=== PATIENT | female | born 1980 | race Caucasian/White ===

== ENCOUNTER → 2017-11-07 | Outpatient (CLI) | payer OTHER ==
--- NOTE | 2017-11-07 13:30 | US ---
EXAMINATION TYPE: US abdomen limited DATE OF EXAM: 11/07/2017 COMPARISON: NONE CLINICAL HISTORY: R94.5 Elevated liver enzymes,K76.0 FATTY LIVER. EXAM MEASUREMENTS: Liver Length: 14.9 cm Gallbladder Wall: surgically absent CBD: 0.4 cm Right Kidney: 10.2 x 4.5 x 3.9 cm Pancreas: Obscured by bowel gas Liver: wnl Gallbladder: Surgically absent Evidence for sonographic Ventura's sign: no CBD: wnl Right Kidney: wnl There is suboptimal evaluation of pancreas on images saved. Gallbladder is noted surgically absent. IMPRESSION: No worrisome intrahepatic mass or intrahepatic ductal dilatation is seen.
== END | disposition home or self-care (01) ==
LOC: RADUSWWP 13:00
PROVIDERS: ATTEND Family Medicine
DX: R79.89 Other specified abnormal findings of blood chemistry (principal); K76.0 Fatty (change of) liver, not elsewhere classified
CPT/HCPCS: 76705

== ENCOUNTER → 2018-08-29 | Outpatient (CLI) | payer OTHER ==
[2018-08-29 09:20] VITALS: BP 122/86; PULSE 76; TEMP 97.9; BMI 36.6
--- NOTE | 2018-08-29 09:52 | P.HPBAR ---
Bariatric H&P - History & Physicial H&P Date: 08/29/18 History & Physicial: Visit/CC: initial clinic visit Patient initial contact: Initial weight: Initial weight in pounds: Height: 5 ft 3.5 in Initial BMI: Last weight: Current weight: 95.345 kg Current weight in pounds: 210.20 Current BMI: 36.6 [place] body weight (based on NIH guidelines): 53.297 kg Excess body weight loss: The patient is a 38 year-old F who presents for Bariatric Assessment. HPI: She comes in with life long troubles with her weight. She is looking into the sleeve gastrectomy. She has completed medical supervised weight loss for over 3+ months. Her heaviest weight 225 pounds in the past 3 years. She has joint problems and hyperlipidemia as a result. She has family history of morbid obesity including an uncle who had a weight loss surgery. She has strong family history of heart disease, diabetes. No esophageal or stomach cancer. She has GERD. She has no gallbladder. She is on a water pill for swelling of the legs and hypertension. She has back, both knees, and hip arthritis. She has sleep apnea, untreated. SKIN: 1+ pedal edema PLAN: 1. EGD for GERD 2. Recommend sleep study 3. MBSC risks reviewed. 4. Labs for metabolic derangements. Past Medical History Past Medical History: Sleep Apnea/CPAP/BIPAP Additional Past Medical History / Comment(s): GALLBLADDER PROBLEMS History of Any Multi-Drug Resistant Organisms: None Reported Past Surgical History: Orthopedic Surgery, Tubal Ligation, Uterine Ablation Additional Past Surgical History / Comment(s): BILAT ANKLE SX R/T FX-HAD PINS IN BOTH AND THEN REMOVED. EXPLORATORY LAP EXAM Past Anesthesia/Blood Transfusion Reactions: No Reported Reaction Past Psychological History: No Psychological Hx Reported Smoking Status: Never smoker Past Alcohol Use History: Rare Past Drug Use History: None Reported - Past Family History Mother Family Medical History: No Reported History Surgical - Exam Vital Signs Temp Pulse BP 97.9 F 76 122/86 08/29/18 09:16 08/29/18 09:16 08/29/18 09:16 Bariatric Checklist Checklist: Plan: Checklist: EGD: 1. Hiatal hernia: 2. H. Pylori: HgbA1c: Vitamin D: Smoking: Never smoker Primary care physician referral: zafar ramsey Psychiatry clearance: Cardiology clearance: Sleep study: Diet journal: VTE risk score: VTE risk level: Rehab needs at discharge:
[2018-08-29 11:21] LABS: HCT 39.3 % (34.0-46.0); HGB 13.5 gm/dL (11.4-16.0); MCH 29.9 pg (25.0-35.0); MCHC 34.3 g/dL (31.0-37.0); MCV 87.2 fL (80.0-100.0); Mean Platelet Volume 7.8; Platelet Count 249 k/uL (150-450); RDW 12.3 % (11.5-15.5); WBC 6.7 k/uL (3.8-10.6)
[2018-08-29 15:56] LABS: Iron Saturation 35.99 (12.00-45.00)
[2018-08-29 15:57] LABS: Albumin 4.1 g/dL (3.80-4.90); Albumin/Globulin Ratio 2.16 (1.20-2.10); Anion Gap 5.1 mmol/L (4.00-12.00); Carbon Dioxide 26.9 mmol/L (21.6-31.8); Globulin 1.9 g/dL (2.1-3.7); LDL Cholesterol,Calculated 124.8 mg/dL (0.0-131.0); Potassium 4.5 mmol/L (3.5-5.5); Total Bilirubin 0.3 mg/dL (0.2-1.2); VLDL Calculation 73.2 mg/dL (5.00-40.00)
[2018-08-29 16:08] LABS: Folate, Serum 15.3 ng/mL; Vitamin D 25 Hydroxy 23.8 ng/mL (30.0-100.0)
== END ==
LOC: BARWHC3 08:54
PROVIDERS: ATTEND Surgery Plastic and Reconstructive Surgery
DX: Z48.815 Encounter for surgical aftercare following surgery on the digestive system (principal); E66.01 Morbid (severe) obesity due to excess calories; E88.1 Lipodystrophy, not elsewhere classified; D50.9 Iron deficiency anemia, unspecified; E44.0 Moderate protein-calorie malnutrition; E55.9 Vitamin D deficiency, unspecified; I11.9 Hypertensive heart disease without heart failure; Z68.35 Body mass index [BMI] 35.0-35.9, adult; Z98.84 Bariatric surgery status
CPT/HCPCS: 84425; 80061; 80053; 82607; 82728; 82746; 83540; 83550; 84443; 85027; 82306; 83036; 93005; 36415; G0463; 99211

== ENCOUNTER 2018-11-22 09:58 | Day surgery (SDC) | payer OTHER ==
[2018-11-20 11:37] VITALS: BMI 32.2
--- NOTE | 2018-11-22 08:47 | P.GSHP ---
History of Present Illness H&P Date: 11/22/18 CHIEF COMPLAINT: GERD HISTORY OF PRESENT ILLNESS: The patient is a 38-year-old female who presents reports gastroesophageal reflux disease. Upper endoscopy was offered for further evaluation and management. PAST MEDICAL HISTORY: Please see list. PAST SURGICAL HISTORY: Please see list. MEDICATIONS: Please see list. ALLERGIES: Please see list. SOCIAL HISTORY: No illicit drug use FAMILY HISTORY: No reports of Crohn disease or ulcerative colitis. REVIEW OF ORGAN SYSTEMS: CONSTITUTIONAL: No reports of fevers or chills. GI: Denies any blood in stools or constipation. PHYSICAL EXAM: VITAL SIGNS: Stable GENERAL: Well-developed and pleasant in no acute distress. HEENT: No scleral icterus. Extraocular movements grossly intact. Moist buccal mucosa. NECK: Supple without lymphadenopathy. CHEST: Unlabored respirations. Equal bilateral excursions. CARDIOVASCULAR: Regular rate and rhythm. Distal 2+ pulses. ABDOMEN: Soft, nondistended. MUSCULOSKELETAL: No clubbing, cyanosis, or edema. ASSESSMENT: 1. Gastroesophageal reflux disease PLAN: 1. Recommend proceeding with an upper endoscopy Past Medical History Past Medical History: Sleep Apnea/CPAP/BIPAP Additional Past Medical History / Comment(s): ON ANTIBIOTICS AND STEROIDS FOR EAR DRAINAGE History of Any Multi-Drug Resistant Organisms: None Reported Past Surgical History: Cholecystectomy, Orthopedic Surgery, Tubal Ligation, Uterine Ablation Additional Past Surgical History / Comment(s): BILAT ANKLE SX R/T FX-HAD PINS IN BOTH AND THEN REMOVED. EXPLORATORY LAP EXAM Past Anesthesia/Blood Transfusion Reactions: No Reported Reaction Smoking Status: Never smoker - Past Family History Mother Family Medical History: No Reported History Medications and Allergies Home Medications Medication Instructions Recorded Confirmed Type Amoxicillin 500 mg PO Q12HR 11/20/18 11/20/18 History methylPREDNISolone Dose Pack 4 mg PO DIRECTED 11/20/18 11/20/18 History [Medrol Dose Pack] Allergies Allergy/AdvReac Type Severity Reaction Status Date / Time cortisone Allergy Rash/Hives Verified 11/20/18 11:33
[~2018-11-22 09:58] MED LIST: LACTATED RINGERS 1,000 ML IV SCH
[2018-11-22 10:30] VITALS: TEMP 97.9
[2018-11-22 10:41] LABS: Glucose,Whole Blood 84 mg/dL (75-99)
[2018-11-22] MEDS ORDERED: MIDAZOLAM 2 MG/2 ML VIAL ONE (11:34)
[2018-11-22] MEDS ORDERED: PROPOFOL 10 MG/ML 20 ML VIAL IV ONE (11:34)
[2018-11-22] MEDS ORDERED: fentaNYL (PF) 50 MCG/ML 2 ML AMP ONE (11:34)
--- NOTE | 2018-11-22 11:46 | P.PCN ---
Date of Procedure: 11/22/18 Description of Procedure: PREOPERATIVE DIAGNOSIS: Gastroesophageal reflux disease. Morbid obesity. POSTOPERATIVE DIAGNOSIS: Morbid obesity. Gastritis. Gastroesophageal reflux disease. OPERATION: Esophagogastroduodenoscopy with biopsies along antrum. SURGEON: Silvia Tran MD ANESTHESIA: MAC. INDICATIONS: The patient is a 38-year-old female who presents with a history of reflux disease. Benefits and risks of the procedure were described. Informed consent was obtained. DESCRIPTION: The patient was brought into the endoscopy suite and laid in the left lateral decubitus position. An Olympus gastroscope was passed along the posterior oropharynx down to the distal esophagus where the squamocolumnar junction was encountered at 34 cm from the incisors. The stomach was entered and no bile reflux was found. Additional findings are listed below. Biopsies with cold forceps were obtained of the antrum. The first through third portion of the duodenum was examined and unremarkable. Retroflexion of the scope confirmed Hill grade 2 lower esophageal valve. The squamocolumnar junction demonstrated LA grade B erosive esophagitis. The stomach was desufflated. The patient tolerated the procedure well. FINDINGS: Squamocolumnar junction 34 cm from the incisors. Diaphragmatic hiatus at 34 cm. Hill grade 2 lower esophageal valve. LA grade B erosive esophagitis. No active duodenitis. Chronic gastritis RECOMMENDATIONS: Upper endoscopy as needed. Plan - Discharge Summary Discharge Rx Participant: No New Discharge Prescriptions: No Action methylPREDNISolone Dose Pack [Medrol Dose Pack] 4 mg PO DIRECTED Amoxicillin 500 mg PO Q12HR Topiramate [Topamax] 100 mg PO DAILY Omeprazole 40 mg PO CONTINUOUS Hydrochlorothiazide 25 mg PO DAILY Discharge Medication List Amoxicillin 500 mg PO Q12HR 11/20/18 [History] methylPREDNISolone Dose Pack [Medrol Dose Pack] 4 mg PO DIRECTED 11/20/18 [History] Hydrochlorothiazide 25 mg PO DAILY 11/22/18 [History] Omeprazole 40 mg PO CONTINUOUS 11/22/18 [History] Topiramate [Topamax] 100 mg PO DAILY 11/22/18 [History] Follow up Appointment(s)/Referral(s): [facility] Center,. [NON-STAFF] - 12/18/18 Patient Instructions/Handouts: Gastroesophageal Reflux Disease (DC) Discharge Disposition: HOME SELF-CARE
[2018-11-22 12:06] VITALS: BP 141/88; PULSE 69; RESP 18
== END 2018-11-22 12:27 | disposition home or self-care (01) ==
LOC: ORWHC2ENDO 09:58
PROVIDERS: ATTEND Surgery Plastic and Reconstructive Surgery
DX: K21.0 Gastro-esophageal reflux disease with esophagitis (principal); K29.50 Unspecified chronic gastritis without bleeding; G47.30 Sleep apnea, unspecified; Z99.89 Dependence on other enabling machines and devices; E66.01 Morbid (severe) obesity due to excess calories; Z68.32 Body mass index [BMI] 32.0-32.9, adult; Z79.2 Long term (current) use of antibiotics; Z79.52 Long term (current) use of systemic steroids; Z79.899 Other long term (current) drug therapy; Z88.8 Allergy status to other drugs, medicaments and biological substances
CPT/HCPCS: 81025; 88305; 43239; J2250; J3010; J2704

== ENCOUNTER → 2018-12-18 | Outpatient (CLI) | payer OTHER ==
[2018-12-18 14:21] VITALS: BP 145/86; PULSE 92; RESP 16; TEMP 98.2; BMI 33.3
--- NOTE | 2018-12-18 15:09 | P.PN ---
Subjective Progress Note Date: 12/18/18 HPI: She reports noise in the back of throat. She is 5 months of medical supervised weight loss. ABDOMEN: Nontender ASSESSMENT: 1. Morbid obesity PLAN: 1. EGD reviewed. 2. She is looking into the sleeve. 3. ENT for sinus drainage 4. She reports no being able to burp. 5. Follow up with dietary journal Objective - Vital Signs Vital signs: Vital Signs Temp 98.2 F 12/18/18 14:17 Pulse 92 12/18/18 14:17 Resp 16 12/18/18 14:17 BP 145/86 12/18/18 14:17 Pulse Ox Intake & Output 12/17/18 12/18/18 12/18/18 18:59 06:59 18:59 Weight 86.636 kg
== END ==
LOC: BARWHC3 13:54
PROVIDERS: ATTEND Surgery Plastic and Reconstructive Surgery
DX: E66.01 Morbid (severe) obesity due to excess calories (principal); Z68.33 Body mass index [BMI] 33.0-33.9, adult
CPT/HCPCS: 99211

== ENCOUNTER → 2019-01-30 | Outpatient (CLI) | payer OTHER ==
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
== END | disposition home or self-care (01) ==
LOC: SLEEP 11:43
PROVIDERS: ATTEND Internal Medicine
DX: G47.33 Obstructive sleep apnea (adult) (pediatric) (principal); E66.9 Obesity, unspecified; R51 Headache; K21.9 Gastro-esophageal reflux disease without esophagitis; M79.89 Other specified soft tissue disorders; Z87.828 Personal history of other (healed) physical injury and trauma; Z98.890 Other specified postprocedural states; Z79.899 Other long term (current) drug therapy; Z68.35 Body mass index [BMI] 35.0-35.9, adult
CPT/HCPCS: 99211

== ENCOUNTER → 2019-02-17 | Outpatient (CLI) | payer OTHER ==
[2019-02-17 12:13] VITALS: BMI 36.4
== END | disposition home or self-care (01) ==
LOC: BARWHC3 08:58
PROVIDERS: ATTEND Surgery Plastic and Reconstructive Surgery
DX: E66.01 Morbid (severe) obesity due to excess calories (principal); Z68.36 Body mass index [BMI] 36.0-36.9, adult
CPT/HCPCS: 97804

== ENCOUNTER → 2020-12-08 | Outpatient (CLI) | payer OTHER ==
--- NOTE | 2020-12-08 10:25 | MM ---
Reason for exam: screening (asymptomatic). Baseline mammogram. History: Family history of breast cancer in maternal grandmother and breast cancer in paternal grandmother. Took hormonal contraceptives for 8 years beginning at age 16. Physical Findings: Nurse did not find any significant physical abnormalities on exam. MG 3D Screening Mammo W/Cad Bilateral CC, MLO, and XCCL view(s) were taken. The breast tissue is heterogeneously dense. This may lower the sensitivity of mammography. There is no discrete abnormality. These results were verbally communicated with the patient and result sheet given to the patient on 12/08/20. ASSESSMENT: Benign, BI-RAD 2 RECOMMENDATION: Routine screening mammogram of both breasts in 1 year.
== END | disposition home or self-care (01) ==
LOC: RADMAMWWP 07:36
PROVIDERS: ATTEND Obstetrics & Gynecology
DX: Z12.31 Encounter for screening mammogram for malignant neoplasm of breast (principal)
CPT/HCPCS: 77063; 77067

== ENCOUNTER → 2023-05-31 | Outpatient (CLI) | payer BC ==
[2023-05-31 16:08] VITALS: BP 121/83; PULSE 84; TEMP 98.4; BMI 38.9
--- NOTE | 2023-05-31 16:09 | P.HPBAR ---
Bariatric H&P - History & Physicial H&P Date: 05/31/23 History & Physicial: Visit/CC: initial consult Patient initial contact: Initial weight: 86.636 kg Initial weight in pounds: 191.00 Height: 5 ft 3.5 in Initial BMI: 33.3 Last weight: Current weight: 101.151 kg Current weight in pounds: 223.00 Current BMI: 38.9 [place] body weight (based on NIH guidelines): 53.297 kg Excess body weight loss: The patient is a 43 year-old F who presents for Bariatric Assessment. Patient presents interested in sleeve gastrectomy or lap band. Patient has been considering surgery for many years now. She was seen in the past in the bariatric center and discussed surgical options with one of the other surgeons here. Patient has tried various medications and diet without sustained weight loss. Patient suffers from migraines, hypercholesterolemia, lower extremity swelling, and GERD symptoms. Denies history of DVT or dysphagia. BMI 38.9. BMI has been gradually increasing over the years. Patient surgical history including ablation, ankle, laparoscopy, laparoscopic cholecystectomy. Denies tobacco use. Review of Systems The patient denies any acute changes in vision or hearing, no dysphagia or odynophagia, no chest pain or shortness of breath, no dysuria or hematuria, no headache, no runny nose, no rectal bleeding or melena, no unexplained weight loss Past Medical History Past Medical History: Sleep Apnea/CPAP/BIPAP Additional Past Medical History / Comment(s): ON ANTIBIOTICS AND STEROIDS FOR EAR DRAINAGE History of Any Multi-Drug Resistant Organisms: None Reported Past Surgical History: Cholecystectomy, Orthopedic Surgery, Tubal Ligation, Uterine Ablation Additional Past Surgical History / Comment(s): BILAT ANKLE SX R/T FX-HAD PINS IN BOTH AND THEN REMOVED. EXPLORATORY LAP EXAM. uterine ablation Past Anesthesia/Blood Transfusion Reactions: No Reported Reaction Past Psychological History: Anxiety Smoking Status: Never smoker Past Alcohol Use History: Occasional Past Drug Use History: None Reported - Past Family History Mother Family Medical History: No Reported History Surgical - Exam Vital Signs Temp Pulse BP 98.4 F 84 121/83 05/31/23 13:54 05/31/23 13:54 05/31/23 13:54 Physical exam: General: Well-developed, well-nourished HEENT: Normocephalic, sclerae nonicteric Abdomen: Nontender, nondistended Extremities: No edema Neuro: Alert and oriented Bariatric Assessment & Plan (1) Severe obesity (BMI 35.0-39.9) with comorbidity Narrative/Plan: 43-year-old female with severe obesity. Patient concerned that her BMI keeps increasing over the years. She has tried a variety of different weight loss methods without success. We discussed the various surgical options and the risks and benefits. The anticipated average weight loss was also discussed in detail. She is now interested in laparoscopic sleeve gastrectomy. Proceed with preoperative upper endoscopy. Obtain appropriate documentation from prior care and psychiatric evaluation. Patient will contact me with any further questions at this point. Status: Acute Bariatric Checklist Checklist: Plan: Checklist: EGD: 1. Hiatal hernia: 2. H. Pylori: HgbA1c: Vitamin D: Smoking: Never smoker Primary care physician referral: zafar ramsey Psychiatry clearance: Cardiology clearance: Sleep study: Diet journal: VTE risk score: VTE risk level: Rehab needs at discharge:
== END ==
LOC: BARWHC3 12:26
PROVIDERS: ATTEND Surgery
DX: E66.01 Morbid (severe) obesity due to excess calories (principal); G47.30 Sleep apnea, unspecified; E78.00 Pure hypercholesterolemia, unspecified; Z88.8 Allergy status to other drugs, medicaments and biological substances; Z68.38 Body mass index [BMI] 38.0-38.9, adult
CPT/HCPCS: 99211

== ENCOUNTER → 2023-05-31 | Outpatient (CLI) | payer BC ==
[2023-05-31 20:27] LABS: ALT 35 U/L (8-44); AST 23 U/L (13-35); Albumin 4.5 d/dL (3.8-4.9); Alkaline Phosphatase 66 U/L (41-126); BUN/Creat Ratio 16.55 Ratio (12.00-20.00); Blood Urea Nitrogen 18.2 mg/dL (9.0-27.0); Calcium 10.1 mg/dL (8.7-10.3); Carbon Dioxide 26.1 mmol/L (21.6-31.8); Chloride 102 mmol/L (96-109); Globulin 2.5 d/dL (1.6-3.3); Glucose 91 mg/dL (70-110); Iron 91 UG/DL (50-170); Potassium 4.2 mmol/L (3.5-5.5); Sodium 139 mmol/L (135-145); Total Bilirubin <0.2 mg/dL (0.3-1.2)
[2023-05-31 20:57] LABS: HCT 42.8 % (37.2-46.3); HGB 14.7 d/dL (12.0-15.0); MCH 30.1 pg (27.0-32.0); MCHC 34.3 d/dL (32.0-37.0); MCV 87.5 FL (80.0-97.0); Mean Platelet Volume 11.6 FL (9.5-12.2); NRBC Per 100 WBC 0 X 10*3/uL (0.00-0.01); Platelet Count 308 X 10*3/uL (140-440); RBC 4.89 X 10*6/uL (4.10-5.20); RDW 12.2 % (11.5-14.5); WBC 7.84 X 10*3/uL (4.50-10.00)
== END | disposition home or self-care (01) ==
LOC: LABWHC1 13:16
PROVIDERS: ATTEND Surgery
DX: E55.9 Vitamin D deficiency, unspecified (principal); K90.89 Other intestinal malabsorption
CPT/HCPCS: 36415; 80053; 82306; 82607; 82746; 83540; 84425; 85027; 93005

== ENCOUNTER → 2023-07-10 | Outpatient (CLI) | payer BC ==
[2023-07-10 14:19] VITALS: BP 117/23; PULSE 84; RESP 16; TEMP 98.2; BMI 41.3
--- NOTE | 2023-07-10 14:30 | P.BASOAP ---
Subjective Progress Note Date: 07/10/23 Principal diagnosis: Morbid obesity Patient returns for recheck. Underwent recent EGD showing mild gastritis. Otherwise doing well. No changes to her previous history and physical. Objective - Vital Signs Vital signs: Vital Signs Temp 98.2 F 07/10/23 14:04 Pulse 84 07/10/23 14:04 Resp 16 07/10/23 14:04 BP 117/23 07/10/23 14:04 Pulse Ox FiO2 Intake & Output 07/09/23 07/10/23 07/10/23 18:59 06:59 18:59 Weight 107.501 kg - Exam Abdomen: Soft, nontender, nondistended Assessment/Plan (1) Morbid obesity with BMI of 40.0-44.9, adult Narrative/Plan: 43-year-old female with morbid obesity and associated comorbidities. Patient remains interested in laparoscopic da Marlon-assisted sleeve gastrectomy. We'll schedule for August. Surgical consent form reviewed in detail. The risks of bleeding, infection, stenosis, stricture, leak, abscess, fistula formation, peritonitis, poor weight loss, reflux, vomiting, conversion to an open procedure, aborting sleeve gastrectomy, [place], PE, DVT, and were discussed. The patient understands and wishes to proceed. Plan: Date: 07/10/23 Initial Weight: 86.636 kg Initial BMI: 33.3 Current Weight: 107.501 kg Current BMI: 41.3 Type of Surgery: Total Volume in Band: Previous Volume: Volume Removed: Volume Added: Band Size:
== END ==
LOC: BARWHC3 13:49
PROVIDERS: ATTEND Surgery
DX: E66.01 Morbid (severe) obesity due to excess calories (principal); Z68.41 Body mass index [BMI] 40.0-44.9, adult; Z88.8 Allergy status to other drugs, medicaments and biological substances
CPT/HCPCS: 99211

== ENCOUNTER → 2023-08-29 | Outpatient (CLI) | payer BC ==
[2023-08-29 19:17] LABS: ALT 36 U/L (8-44); AST 26 U/L (13-35); Albumin 4.4 g/dL (3.8-4.9); Albumin/Globulin Ratio 1.76 Ratio (1.60-3.17); Alkaline Phosphatase 69 U/L (41-126); Blood Urea Nitrogen 16.8 mg/dL (9.0-27.0); Calcium 9.6 mg/dL (8.7-10.3); Carbon Dioxide 21.8 mmol/L (21.6-31.8); Chloride 104 mmol/L (96-109); Globulin 2.5 g/dL (1.6-3.3); Glucose 81 mg/dL (70-110); Potassium 4.2 mmol/L (3.5-5.5); Sodium 138 mmol/L (135-145); Total Bilirubin 0.3 mg/dL (0.3-1.2); Total Protein 6.9 g/dL (6.2-8.2)
[2023-08-29 19:23] LABS: Basophils # (A) 0.06 X 10*3/uL (0.00-0.10); Basophils % (A) 0.7 %; Eosinophils # (A) 0.16 X 10*3/uL (0.04-0.35); Eosinophils % (A) 1.8 %; HCT 42.5 % (37.2-46.3); HGB 14.1 g/dL (12.0-15.0); Lymphocytes # (A) 2.19 X 10*3/uL (0.90-5.00); Lymphocytes % (A) 24.7 %; MCH 29.7 pg (27.0-32.0); MCHC 33.2 g/dL (32.0-37.0); MCV 89.7 FL (80.0-97.0); Mean Platelet Volume 11.7 FL (9.5-12.2); Monocytes # (A) 0.52 X 10*3/uL (0.20-1.00); Monocytes % (A) 5.9 %; NRBC Per 100 WBC 0 X 10*3/uL (0.00-0.01); Neutrophils # (A) 5.91 X 10*3/uL (1.80-7.70); Neutrophils % (A) 66.4 %; Platelet Count 289 X 10*3/uL (140-440); RBC 4.74 X 10*6/uL (4.10-5.20); RDW 12.7 % (11.5-14.5); WBC 8.88 X 10*3/uL (4.50-10.00)
== END | disposition home or self-care (01) ==
LOC: LABWHC1 13:57
PROVIDERS: ATTEND Anesthesiology
DX: Z01.812 Encounter for preprocedural laboratory examination (principal)
CPT/HCPCS: 36415; 80053; 85025; 86850; 86900; 86901

== ENCOUNTER 2023-09-03 08:25 | Observation (INO) | payer BC ==
[~2023-09-03 08:25] MED LIST changes: +DEXAMETHASONE SOD PHOSPHATE 4 MG/ML 1 ML VIAL IV ONE; +ENOXAPARIN 40 MG/0.4 ML SYRINGE SQ PRN; -LACTATED RINGERS 1,000 ML IV SCH; +LIDOCAINE 1% (10MG/ML) FOR IV START INTRADERMA PRN; +MIDAZOLAM 2 MG/2 ML VIAL IV PRN; +fentaNYL (PF) 50 MCG/ML 2 ML AMP IV PRN
[2023-09-03] MEDS: LACTATED RINGERS 1,000 ML IV SCH (09:00)
[2023-09-03] MEDS ORDERED: SCOPOLAMINE 1 MG/72 HR PATCH TRANSDERM ONE (09:15)
[2023-09-03] MEDS: ACETAMINOPHEN TAB 500 MG TAB PO PRN ×2 (09:15→13:33)
[2023-09-03] MEDS: ONDANSETRON 4 MG/2 ML VIAL IVP PRN ×3 (09:15→18:06)
--- NOTE | 2023-09-03 10:08 | P.GSHP ---
History of Present Illness H&P Date: 09/03/23 Chief Complaint: Morbid obesity 43-year-old female here today for elective sleeve gastrectomy. Patient was initially seen in the office in May. Initial BMI 38.9. Today's BMI 40.6. Patient with comorbid disease including hypercholesterolemia sleep apnea GERD migraines. No history of DVT or dysphagia. Surgical history includes laparoscopic cholecystectomy, laparoscopy, uterine ablation, ankle surgery. No tobacco use. Past Medical History Past Medical History: Asthma, Hyperlipidemia, Sleep Apnea/CPAP/BIPAP Additional Past Medical History / Comment(s): bilat. feet swelling, sleep study determined no sleep apnea but pt. think may it, asthma as a child, migraines History of Any Multi-Drug Resistant Organisms: None Reported Past Surgical History: Cholecystectomy, Orthopedic Surgery, Tubal Ligation, Uterine Ablation Additional Past Surgical History / Comment(s): BILAT ANKLE SX R/T FX-HAD PINS IN BOTH AND THEN REMOVED. EXPLORATORY LAP EXAM Past Anesthesia/Blood Transfusion Reactions: No Reported Reaction Smoking Status: Never smoker - Past Family History Mother Family Medical History: No Reported History Father Family Medical History: Coronary Artery Disease (CAD) Additional Family Medical History / Comment(s): cardiac stents Medications and Allergies Home Medications Medication Instructions Recorded Confirmed Type Omeprazole 40 mg PO DAILY 11/22/18 08/29/23 History Topiramate [Topamax] 100 mg PO DAILY 11/22/18 08/29/23 History hydroCHLOROthiazide 25 mg PO DAILY 11/22/18 08/29/23 History FLUoxetine HCL [PROzac] 20 mg PO DAILY 05/31/23 08/29/23 History Fenofibrate 120 mg PO DAILY 05/31/23 08/29/23 History Albuterol Inhaler [Ventolin Hfa 1 - 2 puff INHALATION Q6H PRN 08/29/23 08/29/23 History Inhaler] Allergies Allergy/AdvReac Type Severity Reaction Status Date / Time cortisone Allergy Rash/Hives Verified 09/03/23 08:40 Surgical - Exam Vital Signs Temp Pulse Resp BP Pulse Ox 97.8 F 82 16 124/63 97 09/03/23 09:00 09/03/23 09:00 09/03/23 09:00 09/03/23 09:00 09/03/23 09:00 Physical exam: General: Well-developed, well-nourished HEENT: Normocephalic, sclerae nonicteric Abdomen: Nontender, nondistended Extremities: No edema Neuro: Alert and oriented Assessment and Plan (1) Morbid obesity with BMI of 40.0-44.9, adult Narrative/Plan: 43-year-old female with morbid obesity and associated comorbidities. Patient remains interested in sleeve gastrectomy. We'll proceed with laparoscopic da Marlon-assisted sleeve gastrectomy, possible open at this time. The risks of bleeding, infection, stenosis, stricture, leak, abscess, fistula formation, peritonitis, poor weight loss, reflux, vomiting, conversion to an open procedure, aborting sleeve gastrectomy, [place], PE, DVT, and were discussed. The patient understands and wishes to proceed. Current Visit: No Status: Acute Code(s): E66.01 - MORBID (SEVERE) OBESITY DUE TO EXCESS CALORIES; Z68.41 - BODY MASS INDEX [BMI] 40.0-44.9, ADULT SNOMED Code(s): 955832310
[2023-09-03] MEDS ORDERED: ROCURONIUM 10 MG/ML (5 ML VIAL) IV ONE (10:12)
[2023-09-03] MEDS ORDERED: MIDAZOLAM 2 MG/2 ML VIAL ONE (10:12)
[2023-09-03] MEDS ORDERED: SUCCINYLCHOLINE CHLORIDE 200 MG/10 ML VIAL IV ONE (10:12)
[2023-09-03] MEDS ORDERED: GLYCOPYRROLATE 0.2 MG/ML 2 ML VIAL ONE (10:12)
[2023-09-03] MEDS ORDERED: fentaNYL (PF) 50 MCG/ML 2 ML AMP ONE (10:12)
[2023-09-03] MEDS ORDERED: NEOSTIGMINE 1 MG/ML 10 ML VIAL ONE (10:12)
[2023-09-03] MEDS ORDERED: PHENYLEPHRINE-0.9% NACL SYG 1,000 MCG/10 ML SYRINGE ONE (10:12)
[2023-09-03] MEDS ORDERED: PROPOFOL 10 MG/ML 20 ML VIAL IV ONE (10:12)
[2023-09-03] MEDS ORDERED: LIDOCAINE 1% INJ 10MG/ML (20 ML MDV) ONE (10:12)
[2023-09-03] MEDS ORDERED: ePHEDrine 50 MG/ML 1 ML VIAL ONE (10:12)
[2023-09-03] MEDS ORDERED: BUPIVACAINE (PF) 0.25% 30 ML VIAL SQ ONE (11:04)
[2023-09-03] MEDS ORDERED: LACTATED RINGERS 1,000 ML IV ONE (11:06)
[2023-09-03] MEDS ORDERED: diphenhydrAMINE 50 MG/ML 1 ML VIAL IVP PRN (12:35)
[2023-09-03] MEDS ORDERED: HYDROmorphone 0.5 MG/0.5 ML SYRINGE IVP PRN (12:35)
[2023-09-03] MEDS ORDERED: NALOXONE 0.4 MG/ML 1 ML VIAL IV PRN (12:35)
[2023-09-03] MEDS ORDERED: HYOSCYAMINE ORAL DROPS 1.875 MG/15 ML BOTTLE PO PRN (12:35)
[2023-09-03] MEDS ORDERED: SIMETHICONE 80 MG CHEWABLE PO PRN (12:35)
--- NOTE | 2023-09-03 12:42 | P.OP ---
Date of Procedure: 09/03/23 Procedure(s) Performed: PREOPERATIVE DIAGNOSIS: Morbid obesity, sleep apnea, GERD, hypercholesterolemia POSTOPERATIVE DIAGNOSIS: Same PROCEDURE: Da Marlon assisted laparoscopic sleeve gastrectomy SURGEON: Demi EBL: Minimal ANESTHESIA: General COMPLICATIONS: None OPERATIVE PROCEDURE: Patient was placed in the operating table in the supine position. The patient was then placed under general anesthesia at that time. The abdomen was prepped and draped in the usual sterile fashion. A 5 mm optical trocar was placed in the left upper quadrant 20 cm inferior to the xiphoid process. Insufflation took place up to 15 mmHg. No adhesions were seen. A 5 mm subxiphoid incision was made and the medium Rose retractor was used to elevate the left lobe of liver anteriorly. This was held in place using the fixed arm retractor. An additional 12 mm trocar was placed in the right paramedian location and 2 additional 8 mm trochars were placed in the left upper quadrant one medial and one lateral to the initially placed optical trocar. All of these trochars were placed along the same plane. The initial 5 was then switched to an 8 mm trocar. The robot was then docked appropriately. The 8 mm camera was placed in the left paramedian trocar site down viewing. A fenestrated bipolar was placed in arm 1, arm 3 had the vessel sealer, arm 4 had the small grasper retractor. The hiatus was inspected and there was no visible hiatal hernia. At that point I moved to the distal aspect of the greater curvature the stomach. The short gastric vasculature were divided using the vessel sealer. This dissection took place distally until we were 4 cm from the pylorus. The dissection then took place proximally along the stomach until the posterior short gastrics were divided and the fundus of the stomach was fully mobilized. The posterior adhesions were divided as well. These posterior adhesions were somewhat more than usual. Once the stomach was fully mobilized the blunt tipped 40-Eritre[place] bougie dilator was advanced into the stomach and advanced all the way to the prepyloric location. The patient's stomach by palpation seemed to be of average thickness. Ethicon SLR buttress material was used at each staple load with the exception of the last 1. A total of 7 staple loads were utilized. The first firing was black, the second 2 firings were green, the next 3 firings were blue, the final firing only traversed a small 1 cm portion of the fundus and this was white load. The stomach was then placed in the right upper quadrant after it was fully excised. The oral gastric tube was reinserted. The stomach was insufflated with approximately 100 mL of methylene blue. No evidence of leak or obstruction was seen. Pressure was then dropped to 8 mm for 2-3 minutes. The staple line was inspected and there were 2 sites along the staple line were bleeding was noted. This was a small ooze. 12 mm clips were utilized there with no further bleeding. Tisseel fibrin glue was then used along the length of the staple line. The robot was then undocked. The da Marlon laparoscope was used and the stomach was removed from the 12 mm trocar site without difficulty. The fascia at the 12mm site was closed using [id number] Vicryl sutures with the laparoscopic suture passer and Jay Shantanu technique. The insufflation was evacuated. The skin at all 5 incisions were closed using 4-0 Monocryl sutures. Skin glue was then applied. DISPOSITION: Stable to recovery room
[2023-09-03] MEDS: HYDROmorphone 0.5 MG/0.5 ML SYRINGE IVP PRN ×2 (12:46→13:09)
[2023-09-03] MEDS: ACETAMINOPHEN IV (For NPO) 1,000 MG in EMPTY BAG 1 BAG IVPB SCH ×3 (13:33→23:17)
[2023-09-03] MEDS ORDERED: diphenhydrAMINE 50 MG/ML 1 ML VIAL IVP ONE (15:55)
[2023-09-03] MEDS: ALBUTEROL NEBULIZED 2.5 MG/3 ML INHALATION SCH ×2 (16:20→19:56)
[2023-09-03] MEDS ORDERED: ALBUTEROL HFA INHALER INHALATION PRN (16:26)
[2023-09-03] MEDS: PANTOPRAZOLE 40 MG/10 ML VIAL IV SCH (17:00)
[2023-09-03] MEDS: TOPIRAMATE 100 MG TAB PO SCH (17:00)
--- NOTE | 2023-09-03 17:06 | P.CONS ---
History of Present Illness - Reason for Consult Hypertension and asthma - History of Present Illness Patient is a pleasant 43-year-old female admitted for elective sleeve gastrectomy. Patient was seen in the immediate postoperative periodstill drowsy although denied any complaints patient denied any pain. Patient does have history of hypertension for which she uses hydrochlorothiazide. REVIEW OF SYSTEMS: CONSTITUTIONAL: No fever, no malaise, no fatigue. HEENT: No recent visual problems or hearing problems. Denied any sore throat. CARDIOVASCULAR: No chest pain, orthopnea, PND, no palpitations, no syncope. PULMONARY: No shortness of breath, no cough, no hemoptysis. GASTROINTESTINAL: No diarrhea, no nausea, no vomiting, no abdominal pain. NEUROLOGICAL: No headaches, no weakness, no numbness. HEMATOLOGICAL: Denies any bleeding or petechiae. GENITOURINARY: Denies any burning micturition, frequency, or urgency. MUSCULOSKELETAL/RHEUMATOLOGICAL: Denies any joint pain, swelling, or any muscle pain. ENDOCRINE: Denies any polyuria or polydipsia. The rest of the 14-point review of systems is negative. PHYSICAL EXAMINATION: GENERAL: The patient is drowsy and oriented x3, not in any acute distress. Obese HEENT: Pupils are round and equally reacting to light. EOMI. No scleral icterus. No conjunctival pallor. Normocephalic, atraumatic. No pharyngeal erythema. No thyromegaly. CARDIOVASCULAR: S1 and S2 present. No murmurs, rubs, or gallops. PULMONARY: Chest is clear to auscultation, no wheezing or crackles. ABDOMEN: Soft, nontender, nondistended, normoactive bowel sounds. No palpable organomegaly. MUSCULOSKELETAL: No joint swelling or deformity. EXTREMITIES: No cyanosis, clubbing, or pedal edema. NEUROLOGICAL: Gross neurological examination did not reveal any focal deficits. SKIN: No rashes. Assessment and plan -Hypertension to prevent perioperative hypotension and since patient is on IV fluids will hold off on hydrochlorothiazide -Asthma history without any acute exacerbation -Hyperlipidemia -Sleep apnea For above-mentioned rest of the medical problems patient will be resumed on appropriate medications DVT prophylaxis: As per primary service Past Medical History Past Medical History: Asthma, Hyperlipidemia, Sleep Apnea/CPAP/BIPAP Additional Past Medical History / Comment(s): bilat. feet swelling, sleep study determined no sleep apnea but pt. think may it, asthma as a child, migraines History of Any Multi-Drug Resistant Organisms: None Reported Past Surgical History: Cholecystectomy, Orthopedic Surgery, Tubal Ligation, Uterine Ablation Additional Past Surgical History / Comment(s): BILAT ANKLE SX R/T FX-HAD PINS IN BOTH AND THEN REMOVED. EXPLORATORY LAP EXAM Past Anesthesia/Blood Transfusion Reactions: No Reported Reaction Past Psychological History: Anxiety, Depression Smoking Status: Never smoker Past Alcohol Use History: Occasional Past Drug Use History: None Reported - Past Family History Mother Family Medical History: No Reported History Father Family Medical History: Coronary Artery Disease (CAD) Additional Family Medical History / Comment(s): cardiac stents Medications and Allergies Home Medications Medication Instructions Recorded Confirmed Type Omeprazole 40 mg PO DAILY 11/22/18 08/29/23 History Topiramate [Topamax] 100 mg PO DAILY 11/22/18 08/29/23 History hydroCHLOROthiazide 25 mg PO DAILY 11/22/18 08/29/23 History FLUoxetine HCL [PROzac] 20 mg PO DAILY 05/31/23 08/29/23 History Fenofibrate 120 mg PO DAILY 05/31/23 08/29/23 History Albuterol Inhaler [Ventolin Hfa 1 - 2 puff INHALATION Q6H PRN 08/29/23 08/29/23 History Inhaler] Allergies Allergy/AdvReac Type Severity Reaction Status Date / Time cortisone Allergy Rash/Hives Verified 09/03/23 08:40 Physical Exam Vitals: Vital Signs Temp Pulse Pulse Resp BP BP Pulse Ox 09/03/23 16:05 87 16 141/79 97 09/03/23 15:15 79 16 124/58 96 09/03/23 14:45 70 16 141/76 97 09/03/23 14:15 77 16 144/70 97 09/03/23 14:00 65 16 144/62 96 09/03/23 13:45 78 16 120/59 96 09/03/23 13:35 68 16 115/67 96 09/03/23 13:05 69 16 139/65 96 09/03/23 12:50 73 16 140/65 96 09/03/23 12:37 98.0 F 77 16 142/66 97 09/03/23 09:40 84 16 122/70 94 L 09/03/23 09:00 97.8 F 82 16 124/63 97 Intake and Output 09/03/23 09/03/23 09/03/23 06:59 14:59 22:59 Intake Total 2099 Output Total 20 Balance 2079 Intake: IV 2099 Output: Estimated Blood Loss 20 Other: Weight 105.7 kg 105.7 kg
[2023-09-03] MEDS: METOCLOPRAMIDE 5 MG/ML 2 ML VIAL IVP SCH ×2 (20:15→23:16)
[2023-09-03] MEDS: HYDROmorphone 1 MG/ML 1 ML SYRINGE IVP PRN (20:47)
[2023-09-03] MEDS: 0.9% NACL WITH KCL 20 MEQ/L 1,000 ML IV SCH ×2 (21:27→21:28)
[2023-09-03] MEDS: ENOXAPARIN 40 MG/0.4 ML SYRINGE SQ SCH (23:14)
[2023-09-04] MEDS: HYDROmorphone 1 MG/ML 1 ML SYRINGE IVP PRN (01:13)
[2023-09-04] MEDS: 0.9% NACL WITH KCL 20 MEQ/L 1,000 ML IV SCH ×4 (03:04→23:00)
[2023-09-04] MEDS: ACETAMINOPHEN IV (For NPO) 1,000 MG in EMPTY BAG 1 BAG IVPB SCH ×4 (04:48→23:00)
[2023-09-04] MEDS: METOCLOPRAMIDE 5 MG/ML 2 ML VIAL IVP SCH ×4 (04:51→23:01)
[2023-09-04] MEDS: ALBUTEROL NEBULIZED 2.5 MG/3 ML INHALATION SCH ×4 (07:55→21:03)
[2023-09-04] MEDS: LACTATED RINGERS 1,000 ML IV SCH (08:14)
[2023-09-04] MEDS: ONDANSETRON 4 MG/2 ML VIAL IVP PRN (08:21)
[2023-09-04] MEDS: KETOROLAC 15 MG/ML 1 ML VIAL IVP SCH ×4 (08:27→23:01)
[2023-09-04 08:28] LABS: Basophils # (A) 0.04 X 10*3/uL (0.00-0.10); Basophils % (A) 0.4 %; Eosinophils # (A) 0.02 X 10*3/uL (0.04-0.35); Eosinophils % (A) 0.2 %; HCT 38.8 % (37.2-46.3); HGB 12.8 g/dL (12.0-15.0); Lymphocytes # (A) 2.32 X 10*3/uL (0.90-5.00); Lymphocytes % (A) 21.3 %; MCH 29.4 pg (27.0-32.0); MCV 89.2 FL (80.0-97.0); Mean Platelet Volume 11.7 FL (9.5-12.2); Monocytes # (A) 0.85 X 10*3/uL (0.20-1.00); Monocytes % (A) 7.8 %; NRBC Per 100 WBC 0 X 10*3/uL (0.00-0.01); Neutrophils # (A) 7.62 X 10*3/uL (1.80-7.70); Platelet Count 246 X 10*3/uL (140-440); RBC 4.35 X 10*6/uL (4.10-5.20); RDW 12.7 % (11.5-14.5); WBC 10.88 X 10*3/uL (4.50-10.00)
[2023-09-04] MEDS: PANTOPRAZOLE 40 MG/10 ML VIAL IV SCH (08:28)
[2023-09-04] MEDS: TOPIRAMATE 100 MG TAB PO SCH (08:28)
[2023-09-04] MEDS: FENOFIBRATE 160 MG TAB PO SCH (08:28)
[2023-09-04] MEDS ORDERED: FLUoxetine HCL 20 MG CAP PO SCH (09:00)
[2023-09-04 09:17] LABS: Blood Urea Nitrogen 9.4 mg/dL (9.0-27.0); Calcium 8.6 mg/dL (8.7-10.3); Carbon Dioxide 19.7 mmol/L (21.6-31.8); Chloride 105 mmol/L (96-109); Phosphorus 2.7 mg/dL (2.4-5.1); Potassium 3.8 mmol/L (3.5-5.5); Sodium 136 mmol/L (135-145)
[2023-09-04] MEDS ORDERED: ONDANSETRON 4 MG/2 ML VIAL IVP PRN (09:59)
[2023-09-04] MEDS ORDERED: TRIMETHOBENZAMIDE 100 MG/ML 2 ML VIAL IM PRN (10:01)
--- NOTE | 2023-09-04 10:32 | P.PN ---
Subjective Progress Note Date: 09/04/23 CHIEF COMPLAINT: Morbid obesity HISTORY OF PRESENT ILLNESS: Patient postop day #1 status post laparoscopic sleeve gastrectomy. Patient is complaining of nausea. She does report abdominal pain. Denies any flatus or bowel movement. She is urinating without difficulty. Upper GI is pending. Afebrile. WBC 10.8 Hgb 12.8 sodium 136 potassium 3.8 creatinine 0.9 magnesium 2.0 PHYSICAL EXAM: VITAL SIGNS: Reviewed. GENERAL: Well-developed in no acute distress. ABDOMEN: Soft. Tender incision sites. Incision site is clean dry and intact NEUROLOGIC: Alert and oriented. Cranial nerves II through XII grossly intact. ASSESSMENT: 1. Morbid obesity 2. Sleep apnea 3. GERD 4. Hypercholesterolemia PLAN: -Add Toradol for pain control -Add Tigan for nausea. Continue Reglan scheduled -Continue IV fluids -Increased patient ambulate -Encouraged patient to use incentive spirometer -DVT prophylaxis Lovenox and GI prophylaxis Protonix Physician Tug Master note has been reviewed by physician. Signing provider agrees with the documented findings, assessment, and plan of care. I have personally seen and examined the patient, reviewed the LEGAL SUPPORT ASSISTANT /PAs history, exam and MDM and agree with the assessment and plan as written. Based on total visit time, I have performed more than 50% of the visit. As above: Patient complaining of mild nausea. Some dysphagia when she tried liquids earlier. Pain is improved. Upper GI and labs reviewed. Continue ambulation. Continue sips of liquids. Reassess tomorrow. Objective - Vital Signs Vital signs: Vital Signs Temp 98.3 F 09/04/23 07:19 Pulse 86 09/04/23 07:19 Resp 18 09/04/23 07:19 BP 137/79 09/04/23 07:19 Pulse Ox 96 09/04/23 07:19 FiO2 21 09/04/23 01:02 Intake & Output 09/03/23 09/04/23 09/04/23 18:59 06:59 18:59 Intake Total 2099 Output Total Balance 2079 Weight 105.7 kg Intake: IV 2099 Output: Estimated Blood Loss 20 Other: # Voids 0 3 - Labs CBC & Chem 7: 09/04/23 05:12 09/04/23 05:12 Labs: Abnormal Lab Results - Last 24 Hours (Table) 09/04/23 09/04/23 Range/Units 05:12 05:12 WBC 10.88 H (4.50-10.00) X 10*3/uL Eosinophils # 0.02 L (0.04-0.35) X 10*3/uL Carbon Dioxide 19.7 L (21.6-31.8) mmol/L Calcium 8.6 L (8.7-10.3) mg/dL
[2023-09-04] MEDS: ENOXAPARIN 40 MG/0.4 ML SYRINGE SQ SCH ×2 (11:55→20:52)
[2023-09-04 12:25] VITALS: BMI 40.6
--- NOTE | 2023-09-04 14:08 | FL ---
SINGLE CONTRAST UPPER GI EXAMINATION: CLINICAL HISTORY: 43-year-old female status post bariatric surgery, sleeve gastrectomy. TECHNIQUE: Single contrast exam performed with 40 ml Isovue-370 contrast. Total fluoroscopy time: 2 minutes 9 seconds Total images: 45 DOSE AREA PRODUCT (DAP) UGY*M,MGY*CM: 909.2 FINDINGS: The patient swallowed oral contrast without difficulty. There was some hesitancy due to the undesirab le taste. Esophageal peristalsis and motility are within normal limits. There is prompt passage of contrast from the distal esophagus into the upper most stomach but then mi ld obstruction along the proximal aspect of the sleeve. Episodes of intraesophageal reflux are encoun tered due to pooling in the distal esophagus. Gradual passage of contrast across the sleeve initially as a thin stream but then with increasing thickness of the stream. The degree of relative mild obstr uction improves during the course of the exam and additional passage into the duodenum is visualized. There is no extravasation of contrast to suggest leak. No free air identified below the hemidiaphrag ms. IMPRESSION: Status post sleeve gastrectomy. Mild relative obstruction at the proximal sleeve which partially impr oves as the exam proceeds. Probably on the basis of some postoperative edema. No leak or free air.
--- NOTE | 2023-09-04 14:44 | P.PN ---
Subjective Progress Note Date: 09/04/23 Patient is a pleasant 43-year-old female admitted for elective sleeve gastrectomy. Patient was seen in the immediate postoperative periodstill drowsy although denied any complaints patient denied any pain. Patient does have history of hypertension for which she uses hydrochlorothiazide. 09/04/2023 Patient is evaluated today on the medical floor is postoperative day #1 lateral sleeve gastrectomy. Awake alert states it is not been passing gas yet no bowel movement since surgery. Has abdominal pain dull achy improving generalized states that is improved with medication. white blood cell count 10.88. Did have an upper GI series today showing mild relative obstruction at the proximal sleeve which partially improves as the exam proceeds. Probably on the basis of some postoperative edema. Review of Systems Constitutional: Denied any fatigue denied any fever. Cardio vascular: denied any chest pain, palpitations Gastrointestinal: denied any nausea, vomiting, diarrhea Pulmonary: Denied any shortness of breath cough Neurologic denied any new focal deficits All inpatient medications were reviewed and appropriate changes in these medications as dictated in the interval history and assessment and plan. PHYSICAL EXAMINATION: GENERAL: The patient is drowsy and oriented x3, not in any acute distress. Obese HEENT: Pupils are round and equally reacting to light. EOMI. No scleral icterus. No conjunctival pallor. Normocephalic, atraumatic. No pharyngeal erythema. No thyromegaly. CARDIOVASCULAR: S1 and S2 present. No murmurs, rubs, or gallops. PULMONARY: Chest is clear to auscultation, no wheezing or crackles. ABDOMEN: Soft, nontender, nondistended, normoactive bowel sounds. No palpable organomegaly. MUSCULOSKELETAL: No joint swelling or deformity. EXTREMITIES: No cyanosis, clubbing, or pedal edema. NEUROLOGICAL: Gross neurological examination did not reveal any focal deficits. SKIN: No rashes. Assessment and plan -Hypertension to prevent perioperative hypotension and since patient is on IV fluids will hold off on hydrochlorothiazide -Asthma history without any acute exacerbation -Hyperlipidemia -Sleep apnea -Morbid obesity s/p laproscopic sleeve gastrectomy day 1 For above-mentioned rest of the medical problems patient will be resumed on appropriate medications DVT prophylaxis: As per primary service The impression and plan of care has been dictated by Le Marcelino Nurse Practitioner as directed. Dr. Janette MD I have performed a history and physical examination and medical decision making of this patient, discussed the same with the dictator, and agree with the dictators assessment and plan as written, documented as a scribe. Based on total visit time, I have performed more than 50% of this visit. Objective - Vital Signs Vital signs: Vital Signs Temp 97.3 F L 09/04/23 13:29 Pulse 76 09/04/23 13:29 Resp 18 09/04/23 13:29 BP 129/78 09/04/23 13:29 Pulse Ox 98 09/04/23 13:29 FiO2 21 09/04/23 01:02 Intake & Output 09/03/23 09/04/23 09/04/23 18:59 06:59 18:59 Intake Total 2100 Output Total 20 Balance 2079 Weight 105.7 kg 105.7 kg Intake: IV 2100 Output: Estimated Blood Loss 20 Other: Voiding Method Toilet # Voids 0 3 - Labs CBC & Chem 7: 09/04/23 05:12 09/04/23 05:12 Labs: Abnormal Lab Results - Last 24 Hours (Table) 09/04/23 09/04/23 Range/Units 05:12 05:12 WBC 10.88 H (4.50-10.00) X 10*3/uL Eosinophils # 0.02 L (0.04-0.35) X 10*3/uL Carbon Dioxide 19.7 L (21.6-31.8) mmol/L Calcium 8.6 L (8.7-10.3) mg/dL Assessment and Plan Time with Patient: Less than 30
[2023-09-05] MEDS: KETOROLAC 15 MG/ML 1 ML VIAL IVP SCH ×2 (05:28→11:28)
[2023-09-05] MEDS: ACETAMINOPHEN IV (For NPO) 1,000 MG in EMPTY BAG 1 BAG IVPB SCH ×2 (05:28→11:28)
[2023-09-05] MEDS: METOCLOPRAMIDE 5 MG/ML 2 ML VIAL IVP SCH ×2 (05:28→11:29)
[2023-09-05 07:34] VITALS: RESP 17; TEMP 98.2
[2023-09-05] MEDS: ALBUTEROL NEBULIZED 2.5 MG/3 ML INHALATION SCH ×2 (08:22→13:06)
[2023-09-05] MEDS: LACTATED RINGERS 1,000 ML IV SCH (08:34)
[2023-09-05] MEDS: FENOFIBRATE 160 MG TAB PO SCH (08:34)
[2023-09-05] MEDS: PANTOPRAZOLE 40 MG/10 ML VIAL IV SCH (10:14)
[2023-09-05] MEDS: ENOXAPARIN 40 MG/0.4 ML SYRINGE SQ SCH (10:14)
[2023-09-05] MEDS: 0.9% NACL WITH KCL 20 MEQ/L 1,000 ML IV SCH (10:15)
[2023-09-05] MEDS: TOPIRAMATE 100 MG TAB PO SCH (10:15)
--- NOTE | 2023-09-05 12:48 | P.DS ---
Providers Date of admission: 09/04/23 13:43 Expected date of discharge: 09/05/23 Attending physician: Gume Simms Consults: 09/03/23 12:35 Consult Physician Routine Consulting Provider: Alessandra Tamayo Consult Reason/Comments: med mgmt Do you want consulting provider notified?: Yes Primary care physician: [facility] Course: Discharge diagnosis Morbid obesity, sleep apnea, GERD, hypercholesterolemia Hospital course This is a 43-year-old female status post da Marlon-assisted laparoscopic sleeve gastrectomy. Patient's pain is controlled. She is tolerating diet. Upper GI had shown mild relative obstruction at the proximal sleeve which partially improves as exam proceeds. Probably on the basis of some postoperative edema. No leak or free air. Patient has been up and ambulating. She is having flatus. She is afebrile. She is stable for discharge. Please refer to chart for any further details. Physician Supervisor Screen Printing note has been reviewed by physician. Signing provider agrees with the documented findings, assessment, and plan of care. Patient Condition at Discharge: Stable Plan - Discharge Summary Discharge Rx Participant: Yes New Discharge Prescriptions: New Ondansetron Odt [Zofran Odt] 4 mg PO Q8HR PRN #9 tab PRN Reason: Nausea bisacodyL [Dulcolax] 5 mg PO DAILY PRN #10 tab PRN Reason: Constipation Hyoscyamine Oral Drops [Levsin Drops] 0.125 mg PO Q6HR PRN ml PRN Reason: Esophageal Spasm Simethicone 40 mg/0.6 ml Drops [Mylicon Drops] 40 mg PO PCHS PRN #30 ml PRN Reason: Gas Omeprazole [PriLOSEC] 40 mg PO DAILY #90 cap HYDROcodone/APAP 5-325MG [[place] 5-325] 1 tab PO Q6HR PRN 2 Days #5 tab PRN Reason: Pain Continue Topiramate [Topamax] 100 mg PO DAILY Fenofibrate 120 mg PO DAILY FLUoxetine HCL [PROzac] 20 mg PO DAILY Albuterol Inhaler [Ventolin Hfa Inhaler] 1 - 2 puff INHALATION Q6H PRN PRN Reason: Shortness Of Breath Or Wheezing Discontinued Omeprazole 40 mg PO DAILY hydroCHLOROthiazide 25 mg PO DAILY Discharge Medication List Topiramate [Topamax] 100 mg PO DAILY 11/22/18 [History] FLUoxetine HCL [PROzac] 20 mg PO DAILY 05/31/23 [History] Fenofibrate 120 mg PO DAILY 05/31/23 [History] Albuterol Inhaler [Ventolin Hfa Inhaler] 1 - 2 puff INHALATION Q6H PRN 08/29/23 [History] HYDROcodone/APAP 5-325MG [[place] 5-325] 1 tab PO Q6HR PRN 2 Days #5 tab 09/05/23 [Rx] Hyoscyamine Oral Drops [Levsin Drops] 0.125 mg PO Q6HR PRN ml 09/05/23 [Rx] Omeprazole [PriLOSEC] 40 mg PO DAILY #90 cap 09/05/23 [Rx] Ondansetron Odt [Zofran Odt] 4 mg PO Q8HR PRN #9 tab 09/05/23 [Rx] Simethicone 40 mg/0.6 ml Drops [Mylicon Drops] 40 mg PO PCHS PRN #30 ml 09/05/23 [Rx] bisacodyL [Dulcolax] 5 mg PO DAILY PRN #10 tab 09/05/23 [Rx] [facility] [place] [place] [facility] [place] [facility] Patient Instructions/Handouts: *Surgery [facility] - Scopalamine Patch Instructions Activity/Diet/Wound Care/Special Instructions: No driving while taking [place] No lifting over 10 pounds You may shower. No soaking or tub baths for 2 weeks Very light activity until you are reevaluated at your follow up appointment with your surgeon No straws or carbonated beverages Discharge Disposition: HOME SELF-CARE
[2023-09-05 14:08] VITALS: BP 127/72; PULSE 75
--- NOTE | 2023-09-05 19:49 | P.PN ---
Subjective Patient is a pleasant 43-year-old female admitted for elective sleeve gastrectomy. Patient was seen in the immediate postoperative periodstill drowsy although denied any complaints patient denied any pain. Patient does have history of hypertension for which she uses hydrochlorothiazide. 09/04/2023 Patient is evaluated today on the medical floor is postoperative day #1 lateral sleeve gastrectomy. Awake alert states it is not been passing gas yet no bowel movement since surgery. Has abdominal pain dull achy improving generalized states that is improved with medication. white blood cell count 10.88. Did have an upper GI series today showing mild relative obstruction at the proximal sleeve which partially improves as the exam proceeds. Probably on the basis of some postoperative edema. 09/05/2023 Patient is lying in bed comfortable She tolerates oral diet with liquids Less nausea, less pain She told me she had chest tube to be discharged home today. She denies new complaints. No chest pain. No dyspnea GENERAL: The patient is drowsy and oriented x3, not in any acute distress. Obese HEENT: Pupils are round and equally reacting to light. EOMI. No scleral icterus. No conjunctival pallor. Normocephalic, atraumatic. No pharyngeal erythema. No thyromegaly. CARDIOVASCULAR: S1 and S2 present. No murmurs, rubs, or gallops. PULMONARY: Chest is clear to auscultation, no wheezing or crackles. ABDOMEN: Soft, nontender, nondistended, normoactive bowel sounds. No palpable organomegaly. MUSCULOSKELETAL: No joint swelling or deformity. EXTREMITIES: No cyanosis, clubbing, or pedal edema. NEUROLOGICAL: Gross neurological examination did not reveal any focal deficits. SKIN: No rashes. Assessment and plan -Hypertension to prevent perioperative hypotension and since patient is on IV fluids will hold off on hydrochlorothiazide -Asthma history without any acute exacerbation -Hyperlipidemia -Sleep apnea -Morbid obesity s/p laproscopic sleeve gastrectomy day 1 For above-mentioned rest of the medical problems patient will be resumed on appropriate medications DVT prophylaxis: As per primary service We recommend patient follow up with PCP in one week after discharge with Dr. Damico and she was instructed with the same and she agrees Thank you for consulting Objective - Vital Signs Vital signs: Vital Signs Temp 98.2 F 09/05/23 06:58 Pulse 73 09/05/23 06:58 Resp 17 09/05/23 06:58 BP 125/74 09/05/23 06:58 Pulse Ox 96 09/05/23 08:22 FiO2 21 09/04/23 01:02 Intake & Output 09/04/23 09/05/23 09/05/23 18:59 06:59 18:59 Weight 105.7 kg Other: Voiding Method Toilet Toilet # Voids 3 2 - Labs CBC & Chem 7: 09/04/23 05:12 09/04/23 05:12
== END 2023-09-05 15:20 | disposition home or self-care (01) ==
LOC: OR 08:25 → 4SSUR 16:00 → OR 09-04 13:43 → 4SSUR 09-04 13:43
PROVIDERS: ADMIT Surgery; ATTEND Surgery
DX: E66.01 Morbid (severe) obesity due to excess calories (principal); Z68.41 Body mass index [BMI] 40.0-44.9, adult; K29.50 Unspecified chronic gastritis without bleeding; K66.0 Peritoneal adhesions (postprocedural) (postinfection); K21.9 Gastro-esophageal reflux disease without esophagitis; R11.0 Nausea; E78.00 Pure hypercholesterolemia, unspecified; G47.30 Sleep apnea, unspecified; I10 Essential (primary) hypertension; J45.909 Unspecified asthma, uncomplicated; F41.9 Anxiety disorder, unspecified; F32.A Depression, unspecified; Z79.899 Other long term (current) drug therapy
CPT/HCPCS: 43775; S2900; 74240; 80051; 81025; 82310; 82565; 83735; 84100; 84520; 85025; 88307; 94760; 94762; 96365; 96366; 96367; 96372; 96375; 96376

== ENCOUNTER → 2023-09-07 | Outpatient (CLI) | payer BC ==
[2023-09-07 12:12] VITALS: BP 136/80; PULSE 61; RESP 13; TEMP 98.4; BMI 40.2
== END ==
LOC: BARWHC3 11:03
PROVIDERS: ATTEND Surgery
DX: F33.0 Major depressive disorder, recurrent, mild (principal); Z88.8 Allergy status to other drugs, medicaments and biological substances
CPT/HCPCS: 99211

== ENCOUNTER → 2023-09-13 | Outpatient (CLI) | payer BC ==
[2023-09-13 13:26] VITALS: BP 130/85; PULSE 81; RESP 16; TEMP 98.1; BMI 38.7
--- NOTE | 2023-09-13 14:57 | P.BASOAP ---
Subjective Progress Note Date: 09/13/23 Principal diagnosis: Morbid obesity Patient returns for 1 week recheck. Underwent sleeve gastrectomy last Sunday. Overall doing fairly well. She says last week and she had some chills and possible fever but that went away after 1-2 days. No significant abdominal pain. She has lost 8 pounds in the last 6 days. Heart rate today 81. She has some diarrhea after taking her stool softeners. Patient does have some fullness feeling. No heartburn. No vomiting. Over the last day or 2 she has had decreased fluid intake. 30 ounces yesterday. She has been able to get and 25 ounces so far today. Protein intake likewise fairly low at about 30 g. Objective - Vital Signs Vital signs: Vital Signs Temp 98.1 F 09/13/23 13:05 Pulse 81 09/13/23 13:05 Resp 16 09/13/23 13:05 BP 130/85 09/13/23 13:05 Pulse Ox FiO2 Intake & Output 09/12/23 09/13/23 09/13/23 18:59 06:59 18:59 Weight 100.788 kg - Exam Abdomen: Soft, nondistended, incisions clean and dry, minimal incisional tenderness Assessment/Plan (1) Morbid obesity with BMI of 40.0-44.9, adult Narrative/Plan: 43-year-old female doing fairly well after sleeve gastrectomy last week. Fluid intake remains somewhat marginal. She will work on that. We will contact her tomorrow and if she still is struggling May need to come in for fluid hydration. Increase protein intake as well. Continue antiacids. Continue light lifting. Continue liquid diet. Recheck 2 weeks. Plan: Date: 09/13/23 Initial Weight: 86.636 kg Initial BMI: 33.3 Current Weight: 100.788 kg Current BMI: 38.7 Type of Surgery: Total Volume in Band: Previous Volume: Volume Removed: Volume Added: Band Size:
== END ==
LOC: BARWHC3 12:46
PROVIDERS: ATTEND Surgery
DX: E66.01 Morbid (severe) obesity due to excess calories (principal); Z98.84 Bariatric surgery status; Z71.3 Dietary counseling and surveillance; Z68.41 Body mass index [BMI] 40.0-44.9, adult; Z88.8 Allergy status to other drugs, medicaments and biological substances
CPT/HCPCS: 99211

== ENCOUNTER → 2023-09-14 | Outpatient (CLI) | payer BC ==
[~2023-09-14] MED LIST changes: -DEXAMETHASONE SOD PHOSPHATE 4 MG/ML 1 ML VIAL IV ONE; -ENOXAPARIN 40 MG/0.4 ML SYRINGE SQ PRN; -LIDOCAINE 1% (10MG/ML) FOR IV START INTRADERMA PRN; -MIDAZOLAM 2 MG/2 ML VIAL IV PRN; +SODIUM CHLORIDE 0.9% 2,000 ML IV ONE; -fentaNYL (PF) 50 MCG/ML 2 ML AMP IV PRN
[2023-09-14 10:45] VITALS: BP 130/70; RESP 16; TEMP 97.6
== END ==
LOC: PROCWHC3 10:24
PROVIDERS: ATTEND Surgery
DX: E86.0 Dehydration (principal)
CPT/HCPCS: 96360; 96361

== ENCOUNTER → 2023-10-02 | Outpatient (CLI) | payer BC ==
[2023-10-02 14:11] VITALS: BP 125/78; PULSE 66; RESP 16; TEMP 98.1; BMI 37.6
--- NOTE | 2023-10-02 14:27 | P.BASOAP ---
Subjective Progress Note Date: 10/02/23 Principal diagnosis: morbid obesity Patient returns for reevaluation. Doing well since last visit. Underwent sleeve gastrectomy 1 month ago. She did have to have IV fluid hydration on another occasion since her last visit with me. Tolerating liquids well now. No nausea or vomiting. No pain. Vital signs stable. She has lost 6 pounds. Objective - Vital Signs Vital signs: Vital Signs Temp 98.1 F 10/02/23 14:02 Pulse 66 10/02/23 14:02 Resp 16 10/02/23 14:02 BP 125/78 10/02/23 14:02 Pulse Ox FiO2 Intake & Output 10/01/23 10/02/23 10/02/23 18:59 06:59 18:59 Weight 97.976 kg - Exam Abdomen: Soft, nontender, nondistended Assessment/Plan (1) Severe obesity (BMI 35.0-39.9) with comorbidity Narrative/Plan: Patient doing well post sleeve gastrectomy. Check one month labs. Continue increasing activity. Continue monitoring fluid intake. Continue antiacids. Recheck one month. Plan: Date: 10/02/23 Initial Weight: 86.636 kg Initial BMI: 33.3 Current Weight: 97.976 kg Current BMI: 37.6 Type of Surgery: Vertical Sleeve Gastrectomy Total Volume in Band: Previous Volume: Volume Removed: Volume Added: Band Size:
== END ==
LOC: BARWHC3 13:53
PROVIDERS: ATTEND Surgery
DX: E66.01 Morbid (severe) obesity due to excess calories (principal); Z71.3 Dietary counseling and surveillance; Z98.84 Bariatric surgery status; Z88.8 Allergy status to other drugs, medicaments and biological substances; Z68.37 Body mass index [BMI] 37.0-37.9, adult
CPT/HCPCS: 97802; 99211

== ENCOUNTER → 2023-10-10 | Outpatient (CLI) | payer BC ==
[2023-10-10 18:09] LABS: HCT 42.2 % (37.2-46.3); HGB 14.3 g/dL (12.0-15.0); MCH 29.2 pg (27.0-32.0); MCHC 33.9 g/dL (32.0-37.0); MCV 86.1 FL (80.0-97.0); Mean Platelet Volume 12.4 FL (9.5-12.2); NRBC Per 100 WBC 0 X 10*3/uL (0.00-0.01); Platelet Count 228 X 10*3/uL (140-440); RDW 12.5 % (11.5-14.5); WBC 6.03 X 10*3/uL (4.50-10.00)
[2023-10-10 18:32] LABS: BUN/Creat Ratio 11.78 Ratio (12.00-20.00); Blood Urea Nitrogen 10.6 mg/dL (9.0-27.0); Chloride 106 mmol/L (96-109); Glucose 135 mg/dL (70-110); Iron 68 UG/DL (50-170); Potassium 3.7 mmol/L (3.5-5.5); Sodium 139 mmol/L (135-145)
[2023-10-10 18:33] LABS: ALT 31 U/L (8-44); AST 22 U/L (13-35); Albumin 4.3 g/dL (3.8-4.9); Albumin/Globulin Ratio 1.72 Ratio (1.60-3.17); Alkaline Phosphatase 83 U/L (41-126); Calcium 9.5 mg/dL (8.7-10.3); Carbon Dioxide 19.6 mmol/L (21.6-31.8); Globulin 2.5 g/dL (1.6-3.3); Total Bilirubin 0.2 mg/dL (0.3-1.2); Total Protein 6.8 g/dL (6.2-8.2)
== END | disposition home or self-care (01) ==
LOC: LABWHC1 15:14
PROVIDERS: ATTEND Surgery
DX: E66.01 Morbid (severe) obesity due to excess calories (principal); K90.89 Other intestinal malabsorption; E55.9 Vitamin D deficiency, unspecified
CPT/HCPCS: 36415; 80053; 82306; 82607; 82746; 83540; 84425; 85027

== ENCOUNTER → 2024-01-08 | Outpatient (CLI) | payer BC ==
[2024-01-08 15:44] VITALS: BP 139/91; PULSE 69; RESP 16; TEMP 98; BMI 32.5
--- NOTE | 2024-01-08 16:42 | P.BASOAP ---
Subjective Progress Note Date: 01/08/24 Principal diagnosis: Morbid obesity 43-year-old female returns for recheck. Underwent sleeve gastrectomy last August. Was seen in September but then not seen after that. She came in 1 month later however I was in the operating room and could not see her that day. Describes increasing heartburn over the last week or so. Seems to be worse with coffee. She has been losing good amount of weight. Think she is eating better recently. She does have dysphagia to steak and pork. Tolerates chicken breast without difficulty. Started taking her omeprazole twice daily and also doing Carafate 1-2 times daily. Better reflux symptoms since then. She is due for 3- month lab work. Patient describing increased fatigue over the last month. Says she has not utilizing protein shakes because of the taste and sensation of nausea when drinking. Objective - Vital Signs Vital signs: Vital Signs Temp 98 F 01/08/24 15:07 Pulse 69 01/08/24 15:07 Resp 16 01/08/24 15:07 BP 139/91 01/08/24 15:07 Pulse Ox FiO2 Intake & Output 01/07/24 01/08/24 01/08/24 18:59 06:59 18:59 Weight 84.822 kg - Exam Abdomen: Soft, nontender, nondistended Assessment/Plan (1) Morbid obesity with BMI of 40.0-44.9, adult Narrative/Plan: 43-year-old female doing well after previously gastrectomy. Continue antacid therapy and omeprazole. Suspect this will gradually improve. Will check 3- month labs. Recheck 1 month. Plan: Date: 01/08/24 Initial Weight: 86.636 kg Initial BMI: 33.3 Current Weight: 84.822 kg Current BMI: 32.5 Type of Surgery: Vertical Sleeve Gastrectomy Total Volume in Band: Previous Volume: Volume Removed: Volume Added: Band Size:
[2024-01-08 19:03] LABS: HCT 42.1 % (37.2-46.3); HGB 13.9 g/dL (12.0-15.0); MCH 28.7 pg (27.0-32.0); Mean Platelet Volume 11.7 FL (9.5-12.2); NRBC Per 100 WBC 0 X 10*3/uL (0.00-0.01); Platelet Count 257 X 10*3/uL (140-440); RBC 4.84 X 10*6/uL (4.10-5.20); RDW 12.4 % (11.5-14.5); WBC 6.72 X 10*3/uL (4.50-10.00)
[2024-01-08 21:23] LABS: ALT 22 U/L (8-44); AST 21 U/L (13-35); Albumin 4.5 g/dL (3.8-4.9); Albumin/Globulin Ratio 1.88 Ratio (1.60-3.17); Alkaline Phosphatase 84 U/L (41-126); Blood Urea Nitrogen 17.1 mg/dL (9.0-27.0); Calcium 9.7 mg/dL (8.7-10.3); Carbon Dioxide 26.8 mmol/L (21.6-31.8); Chloride 104 mmol/L (96-109); Globulin 2.4 g/dL (1.6-3.3); Glucose 92 mg/dL (70-110); Iron 68 UG/DL (50-170); Sodium 142 mmol/L (135-145); Total Bilirubin 0.3 mg/dL (0.3-1.2); Total Protein 6.9 g/dL (6.2-8.2)
== END ==
LOC: BARWHC3 14:31
PROVIDERS: ATTEND Surgery
DX: E66.01 Morbid (severe) obesity due to excess calories (principal); E44.1 Mild protein-calorie malnutrition; E55.9 Vitamin D deficiency, unspecified; Z68.41 Body mass index [BMI] 40.0-44.9, adult; Z90.3 Acquired absence of stomach [part of]; Z88.4 Allergy status to anesthetic agent
CPT/HCPCS: 80053; 82306; 82607; 82746; 83540; 84425; 84443; 84590; 85027; 99211

== ENCOUNTER → 2024-01-11 | Outpatient (CLI) | payer BC ==
[~2024-01-11] MED LIST changes: +CYANOCOBALAMIN 1,000 MCG/ML 1 ML VIAL IM NR; -SODIUM CHLORIDE 0.9% 2,000 ML IV ONE
== END ==
LOC: PROCWHC3 11:48
PROVIDERS: ATTEND Surgery
DX: D51.9 Vitamin B12 deficiency anemia, unspecified (principal); Z53.9 Procedure and treatment not carried out, unspecified reason

== ENCOUNTER 2024-08-29 03:21 | Emergency (ER) | payer BC ==
--- NOTE | 2024-08-29 03:37 | ED ---
General Adult HPI - General Chief complaint: Urogenital Stated complaint: UTI Time Seen by Provider: 08/29/24 03:31 Source: patient Mode of arrival: ambulatory Limitations: no limitations - History of Present Illness Initial comments: Patient is a 44-year-old female presents ER today with complaint of difficulty urinating. Patient states she feels like she needs to urinate but cannot. Patient notes that she has been experiencing intermittent pelvic pain and left- sided flank pain for about a month she saw her primary care she had a pelvic ultrasound was noted advised that she had some type of abnormality in her uterus and an MRI was ordered she did schedule a follow-up appointment with gynecology and will be seen this week. Patient states that she had a elective ablation about 10 years ago due to dysmenorrhea she does not have any difficulties with periods or cramping any longer. She has no dyspareunia. She has no concern for sexually transmitted infections. She has no history of abnormal Pap smears. Patient notes that she is experiencing urinary urgency and frequency but no dysuria and no gross hematuria. No history of kidney stones. - Related Data Home Medications Medication Instructions Recorded Confirmed Topiramate [Topamax] 100 mg PO DAILY 11/22/18 01/10/24 FLUoxetine HCL [PROzac] 20 mg PO DAILY 05/31/23 01/10/24 Previous Rx's Medication Instructions Recorded Omeprazole [PriLOSEC] 40 mg PO DAILY #90 cap 09/05/23 bisacodyL [Dulcolax] 5 mg PO DAILY PRN #10 tab 09/05/23 Cephalexin [Keflex] 500 mg PO Q12HR 1 Days #10 cap 08/29/24 Ondansetron Odt [Zofran Odt] 4 mg PO Q8HR PRN #20 tab 08/29/24 Tamsulosin [Flomax] 0.4 mg PO DAILY #7 cap 08/29/24 Allergies Allergy/AdvReac Type Severity Reaction Status Date / Time cortisone Allergy Rash/Hives Verified 08/29/24 03:27 Review of Systems ROS Statement: Those systems with pertinent positive or pertinent negative responses have been documented in the HPI. ROS Other: All systems not noted in ROS Statement are negative. Past Medical History Past Medical History: No Reported History, Asthma, Hyperlipidemia, Sleep Apnea/CPAP/BIPAP Additional Past Medical History / Comment(s): bilat. feet swelling, sleep study determined no sleep apnea but pt. think may it, asthma as a child, migraines History of Any Multi-Drug Resistant Organisms: None Reported Past Surgical History: Bariatric Surgery, Cholecystectomy, Orthopedic Surgery, Tubal Ligation, Uterine Ablation Additional Past Surgical History / Comment(s): BILAT ANKLE SX R/T FX-HAD PINS IN BOTH AND THEN REMOVED. EXPLORATORY LAP EXAM. 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 Patient is nontoxic and well-hydrated and is in no distress. HENT: Normocephalic, Atraumatic. EYES: PERRL, EOMI PULMONARY: Unlabored respirations. CARDIOVASCULAR: RRR Warm and well perfused extremities ABDOMEN: Non-distended SKIN: No rashes or bruising : Deferred NEUROLOGIC: Alert and oriented Normal speech Normal gait MUSCULOSKELETAL: Moving all extremities with no apparent injury PSYCHIATRIC: No SI/HI Limitations: no limitations Course Vital Signs 08/29/24 08/29/24 03:22 07:07 Temperature 97.3 F L 97.6 F Pulse Rate 74 75 Respiratory 16 17 Rate Blood Pressure 145/93 138/88 O2 Sat by Pulse 99 98 Oximetry Medical Decision Making - Medical Decision Making Was pt. sent in by a medical professional or institution (, PA, TECHNICIAN, urgent care, hospital, or custodial...) When possible be specific @ -No Did you speak to anyone other than the patient for history (EMS, parent, family, police, friend...)? What history was obtained from this source @ -No Did you review nursing and triage notes (agree or disagree)? Why? @ -I reviewed and agree with nursing and triage notes Were old charts reviewed (outside hosp., previous admission, EMS record, old EKG, old radiological studies, urgent care reports/EKG's, custodial records)? Report findings @ -No old charts were reviewed Differential Diagnosis (chest pain, altered mental status, abdominal pain women, abdominal pain men, vaginal bleeding, weakness, fever, dyspnea, syncope, headache, dizziness, GI bleed, back pain, seizure, CVA, palpatations, mental h ealth)? @ -Differential Abdominal Pain Women: Appendicitis, Cholecystitis, diverticulosis, ischemic bowel, pancreatitis, hepatitis, UTI, gastroenteritis, AAA, incarcerated hernia, bowel obstruction, constipation, inflammatory bowel, hepatitis, peptic ulcer disease, splenic infarction, perforated viscus, vulvitis, ovarian torsion, PID, kidney stone, placenta abruption, this is not meant to be an all-inclusive list EKG interpreted by me (3pts min.). @ -As above X-rays interpreted by me (1pt min.). @ -None done CT interpreted by me (1pt min.). @ -Left-sided hydronephrosis, no free air U/S interpreted by me (1pt. min.). @ -None done What testing was considered but not performed or refused? (CT, X-rays, U/S, labs)? Why? @ -None What meds were considered but not given or refused? Why? @ -None Did you discuss the management of the patient with other professionals (professionals i.e. , PA, TECHNICIAN, lab, RT, psych nurse, social work coordinator, power generation technician, teacher, light armored vehicle officer, case consultant)? Give summary @ -No Was smoking cessation discussed for >3mins.? @ -No Was critical care preformed (if so, how long)? @ -No Were there social determinants of health that impacted care today? How? (Homel essness, low income, unemployed, alcoholism, drug addiction, transportation, low edu. Level, literacy, decrease access to med. care, alf, rehab)? @ -No Was there de-escalation of care discussed even if they declined (Discuss DNR or withdrawal of care, Hospice)? DNR status @ -No What co-morbidities impacted this encounter? (DM, HTN, Smoking, COPD, CAD, Cancer, CVA, ARF, Chemo, Hep., AIDS, mental health diagnosis, sleep apnea, morbid obesity)? @ -None Was patient admitted / discharged? Hospital course, mention meds given and route, prescriptions, significant lab abnormalities, going to OR and other pertinent info. @ -Discharged Patient was seen and evaluated history is obtained from the patient Bladder scan reveals only 132 in the bladder patient has not urinated for about 2 hours. Labs and imaging were obtained labs with no significant abnormalities, CT scan reveals a left-sided 5 mm stone. Results were discussed the patient expresses relief at having a diagnosis. Symptomatic care was discussed patient will be discharged home with Zofran, Flomax and Keflex. Undiagnosed new problem with uncertain prognosis? @ -No Drug Therapy requiring intensive monitoring for toxicity (Heparin, Nitro, Insulin, Cardizem)? @ -No Were any procedures done? @ -No Diagnosis/symptom? @ -Left sided kidney stone Acute, or Chronic, or Acute on Chronic? @ -Acute Uncomplicated (without systemic symptoms) or Complicated (systemic symptoms)? @ -Default Side effects of treatment? @ -No Exacerbation, Progression, or Severe Exacerbation? @ -No Poses a threat to life or bodily function? How? (Chest pain, [place], [place], pneumonia, PE, COPD, DKA, ARF, appy, cholecystitis, CVA, Diverticulitis, Homicidal, Suicidal, threat to staff... and all critical care pts) @ -No - Lab Data Result diagrams: 08/29/24 04:09 08/29/24 04:09 Lab Results 08/29/24 08/29/24 08/29/24 Range/Units 03:36 04:09 04:09 WBC 7.9 (3.8-10.6) k/uL RBC 4.49 (3.80-5.40) m/uL Hgb 13.5 (11.4-16.0) gm/dL Hct 40.9 (34.0-46.0) % MCV 91.1 (80.0-100.0) fL MCH 30.0 (25.0-35.0) pg MCHC 32.9 (31.0-37.0) g/dL RDW 11.8 (11.5-15.5) % Plt Count 240 (150-450) k/uL MPV 8.4 Neutrophils % 64 % Lymphocytes % 27 % Monocytes % 5 % Eosinophils % 2 % Basophils % 1 % Neutrophils # 5.1 (1.3-7.7) k/uL Lymphocytes # 2.2 (1.0-4.8) k/uL Monocytes # 0.4 (0-1.0) k/uL Eosinophils # 0.2 (0-0.7) k/uL Basophils # 0.1 (0-0.2) k/uL Sodium (137-145) mmol/L Potassium (3.5-5.1) mmol/L Chloride (98-107) mmol/L Carbon Dioxide (22-30) mmol/L Anion Gap mmol/L BUN (7-17) mg/dL Creatinine (0.52-1.04) mg/dL Est GFR (CKD-EPI)AfAm (>60 ml/min/1.73 sqM) Est GFR (CKD-EPI)NonAf (>60 ml/min/1.73 sqM) Glucose (74-99) mg/dL Plasma Lactic Acid Tank 0.8 (0.7-2.0) mmol/L Calcium (8.4-10.2) mg/dL Total Bilirubin (0.2-1.3) mg/dL AST (14-36) U/L ALT (4-34) U/L Alkaline Phosphatase (38-126) U/L Total Protein (6.3-8.2) g/dL Albumin (3.5-5.0) g/dL Urine Color Light Yellow Urine Appearance Cloudy H (Clear) Urine pH 5.5 (5.0-8.0) Ur Specific [place] 1.015 (1.001-1.035) Urine Protein Trace H (Negative) Urine Glucose (UA) Negative (Negative) Urine Ketones Negative (Negative) Urine Blood Large H (Negative) Urine Nitrite Negative (Negative) Urine Bilirubin Negative (Negative) Urine Urobilinogen <2.0 (<2.0) mg/dL Ur Leukocyte Esterase Trace H (Negative) Urine RBC >182 H (0-5) /hpf Urine WBC 5 (0-5) /hpf Ur Squamous Epith Cells 3 (0-4) /hpf Urine Bacteria Rare H (None) /hpf Urine Mucus Few H (None) /hpf 08/29/24 Range/Units 04:09 WBC (3.8-10.6) k/uL RBC (3.80-5.40) m/uL Hgb (11.4-16.0) gm/dL Hct (34.0-46.0) % MCV (80.0-100.0) fL MCH (25.0-35.0) pg MCHC (31.0-37.0) g/dL RDW (11.5-15.5) % Plt Count (150-450) k/uL MPV Neutrophils % % Lymphocytes % % Monocytes % % Eosinophils % % Basophils % % Neutrophils # (1.3-7.7) k/uL Lymphocytes # (1.0-4.8) k/uL Monocytes # (0-1.0) k/uL Eosinophils # (0-0.7) k/uL Basophils # (0-0.2) k/uL Sodium 139 (137-145) mmol/L Potassium 3.5 (3.5-5.1) mmol/L Chloride 108 H (98-107) mmol/L Carbon Dioxide 29 (22-30) mmol/L Anion Gap 2 mmol/L BUN 15 (7-17) mg/dL Creatinine 0.87 (0.52-1.04) mg/dL Est GFR (CKD-EPI)AfAm >90 (>60 ml/min/1.73 sqM) Est GFR (CKD-EPI)NonAf 81 (>60 ml/min/1.73 sqM) Glucose 90 (74-99) mg/dL Plasma Lactic Acid Tank (0.7-2.0) mmol/L Calcium 9.4 (8.4-10.2) mg/dL Total Bilirubin 0.3 (0.2-1.3) mg/dL AST 21 (14-36) U/L ALT 19 (4-34) U/L Alkaline Phosphatase 59 (38-126) U/L Total Protein 6.1 L (6.3-8.2) g/dL Albumin 3.7 (3.5-5.0) g/dL Urine Color Urine Appearance (Clear) Urine pH (5.0-8.0) Ur Specific [place] (1.001-1.035) Urine Protein (Negative) Urine Glucose (UA) (Negative) Urine Ketones (Negative) Urine Blood (Negative) Urine Nitrite (Negative) Urine Bilirubin (Negative) Urine Urobilinogen (<2.0) mg/dL Ur Leukocyte Esterase (Negative) Urine RBC (0-5) /hpf Urine WBC (0-5) /hpf Ur Squamous Epith Cells (0-4) /hpf Urine Bacteria (None) /hpf Urine Mucus (None) /hpf Disposition Clinical Impression: Kidney stone Disposition: HOME SELF-CARE Condition: Stable Prescriptions: Tamsulosin [Flomax] 0.4 mg PO DAILY #7 cap Cephalexin [Keflex] 500 mg PO Q12HR 1 Days #10 cap Ondansetron Odt [Zofran Odt] 4 mg PO Q8HR PRN #20 tab PRN Reason: Nausea Is patient prescribed a controlled substance at d/c from ED?: No Referrals: Neena De Los Santos NPC [Primary Care Provider] - 1-2 days Keon Carmichael MD [STAFF PHYSICIAN] - 1-2 days
[2024-08-29 04:30] LABS: Basophils # (A) 0.1 k/uL (0-0.2); Basophils % (A) 1 %; Eosinophils # (A) 0.2 k/uL (0-0.7); Eosinophils % (A) 2 %; HCT 40.9 % (34.0-46.0); HGB 13.5 gm/dL (11.4-16.0); Lymphocytes # (A) 2.2 k/uL (1.0-4.8); Lymphocytes % (A) 27 %; MCHC 32.9 g/dL (31.0-37.0); MCV 91.1 fL (80.0-100.0); Mean Platelet Volume 8.4; Monocytes # (A) 0.4 k/uL (0-1.0); Monocytes % (A) 5 %; Neutrophils # (A) 5.1 k/uL (1.3-7.7); Neutrophils % (A) 64 %; Platelet Count 240 k/uL (150-450); RBC 4.49 m/uL (3.80-5.40); RDW 11.8 % (11.5-15.5); WBC 7.9 k/uL (3.8-10.6)
[2024-08-29 04:38] LABS: ALT 19 U/L (4-34); AST 21 U/L (14-36); African American GFR (CKD) >90 (>60 ml/min/1.73 sqM); Albumin 3.7 g/dL (3.5-5.0); Alkaline Phosphatase 59 U/L (38-126); Anion Gap 2 mmol/L; Blood Urea Nitrogen 15 mg/dL (7-17); Calcium 9.4 mg/dL (8.4-10.2); Carbon Dioxide 29 mmol/L (22-30); Chloride 108 mmol/L (98-107); Glucose 90 mg/dL (74-99); Non-African American GFR(CKD) 81 (>60 ml/min/1.73 sqM); Potassium 3.5 mmol/L (3.5-5.1); Sodium 139 mmol/L (137-145); Total Bilirubin 0.3 mg/dL (0.2-1.3); Total Protein 6.1 g/dL (6.3-8.2)
--- NOTE | 2024-08-29 05:27 | CT ---
EXAMINATION TYPE: CT abdomen pelvis w con DATE OF EXAM: 08/29/2024 HISTORY: Pt reports since waking around 0030 pt has been unable to urinate even with urge. Pt endorse L flank pain and lower abdominal pain. CT DLP: 927.1mGycm Automated Exposure Control for Dose Reduction was Utilized. CONTRAST: CT scan of the abdomen and pelvis is performed with IV Contrast, patient injected with 100ml mL of Is ovue 300. COMPARISON: None. FINDINGS: LUNG BASES: No significant abnormality is appreciated. LIVER/GB: Cholecystectomy clips are noted. PANCREAS: No significant abnormality is seen. SPLEEN: No significant abnormality is seen. ADRENALS: No significant abnormality is seen. KIDNEYS: Satisfactory enhancement and excretion from the right kidney without hydronephrosis. At leas t delayed enhancement in the left kidney with [id number] left-sided hydronephrosis as there is an obstructing 5 mm distal left ureter calculus on coronal image 58 noted right before UVJ. No intral uminal calculus in the bladder. BOWEL: Surgical changes from gastric sleeve procedure is seen. No abnormal small or large bowel dilat ation. UTERUS/ADNEXA: Anteverted uterus. LYMPH NODES: No greater than 1cm abdominal or pelvic lymph nodes are appreciated. OSSEOUS STRUCTURES: No significant abnormality is seen. OTHER: No significant additional abnormality is seen. IMPRESSION: There is 5 mm calculus in distal left ureter right before UVJ causing [id number] le ft-sided hydronephrosis and delayed left renal excretion. [facility], , 08/29/2024 5:25 AM
[2024-08-29] MEDS: KETOROLAC 15 MG/ML 1 ML VIAL IVP STA (06:25)
[2024-08-29 06:28] LABS: Appearance,Urine Cloudy (Clear); Bacteria,Urine Rare /hpf; Bilirubin,Urine Negative (Negative); Blood,Urine Large (Negative); Color,Urine Light Yellow; Glucose,Urine (UA) Negative (Negative); Ketones,Urine Negative (Negative); Leukocyte Esterase,Urine Trace (Negative); Mucus,Urine Few /hpf; Nitrite,Urine Negative (Negative); PH, Urine 5.5 (5.0-8.0); Protein,Urine Trace (Negative); RBC,Urine >182 /hpf (0-5); Specific Gravity,Urine 1.015 (1.001-1.035); Squamous Epithelial Cell,Urine 3 /hpf (0-4); Urobilinogen,Urine <2.0 mg/dL (<2.0); WBC,Urine 5 /hpf (0-5)
[2024-08-29] MEDS: CEPHALEXIN 500 MG CAP PO STA (07:03)
[2024-08-29 07:08] VITALS: BP 138/88; PULSE 75; RESP 17; TEMP 97.6
== END 2024-08-29 07:08 | disposition home or self-care (01) ==
LOC: EC 03:21
DX: N13.6 Pyonephrosis (principal); Z88.8 Allergy status to other drugs, medicaments and biological substances
CPT/HCPCS: 51798; 36415; 80053; 83605; 85025; 81001; 74177; 99284; 96374; J1885; Q9967

== ENCOUNTER 2024-09-02 07:46 | Emergency (ER) | payer BC ==
[2024-09-02 07:50] VITALS: PULSE 78; RESP 20; TEMP 98.4
--- NOTE | 2024-09-02 08:05 | ED ---
Abdominal Pain HPI - General Chief Complaint: Abdominal Pain Stated Complaint: L side abd pain/kidney stone Time Seen by Provider: 09/02/24 07:47 Source: patient, RN notes reviewed Mode of arrival: ambulatory Limitations: no limitations - History of Present Illness Initial Comments: 44-year-old female presents emergency department with chief complaint of left flank pain. Patient was seen here few days ago and was diagnosed with kidney stone. Patient states that pain was mild up until last day she states it is more severe she took an old tramadol with no relief of symptoms she has nausea vomiting no fevers or chills she been taking her medications as directed. Patient denies chest pain shortness of breath she does have an appoint with urology but not for another week. - Related Data Home Medications Medication Instructions Recorded Confirmed Topiramate [Topamax] 100 mg PO DAILY 11/22/18 01/10/24 FLUoxetine HCL [PROzac] 20 mg PO DAILY 05/31/23 01/10/24 Previous Rx's Medication Instructions Recorded Omeprazole [PriLOSEC] 40 mg PO DAILY #90 cap 09/05/23 bisacodyL [Dulcolax] 5 mg PO DAILY PRN #10 tab 09/05/23 Cephalexin [Keflex] 500 mg PO Q12HR 1 Days #10 cap 08/29/24 Ondansetron Odt [Zofran Odt] 4 mg PO Q8HR PRN #20 tab 08/29/24 Tamsulosin [Flomax] 0.4 mg PO DAILY #7 cap 08/29/24 HYDROcodone/APAP 5-325MG [[place] 5] 1 each PO Q6HR PRN #12 tab 09/02/24 Tamsulosin [Flomax] 0.4 mg PO DAILY #7 cap 09/02/24 Allergies Allergy/AdvReac Type Severity Reaction Status Date / Time cortisone Allergy Rash/Hives Verified 09/02/24 07:50 Review of Systems ROS Statement: Those systems with pertinent positive or pertinent negative responses have been documented in the HPI. ROS Other: All systems not noted in ROS Statement are negative. Past Medical History Past Medical History: No Reported History, Asthma, Hyperlipidemia, Sleep Apnea/CPAP/BIPAP Additional Past Medical History / Comment(s): bilat. feet swelling, sleep study determined no sleep apnea but pt. think may it, asthma as a child, migraines History of Any Multi-Drug Resistant Organisms: None Reported Past Surgical History: Bariatric Surgery, Cholecystectomy, Orthopedic Surgery, Tubal Ligation, Uterine Ablation Additional Past Surgical History / Comment(s): BILAT ANKLE SX R/T FX-HAD PINS IN BOTH AND THEN REMOVED. EXPLORATORY LAP EXAM. Sleeve Gastrectomy 09-03-23 Past Anesthesia/Blood Transfusion Reactions: No Reported Reaction Past Psychological History: Anxiety, Depression Smoking Status: Never smoker Past Alcohol Use History: Occasional Past Drug Use History: None Reported - Past Family History Mother Family Medical History: No Reported History Father Family Medical History: Coronary Artery Disease (CAD) Additional Family Medical History / Comment(s): cardiac stents General Exam Limitations: no limitations General appearance: alert, in no apparent distress Head exam: Present: atraumatic, normocephalic, normal inspection Eye exam: Present: normal appearance, PERRL, EOMI. Absent: scleral icterus, conjunctival injection, periorbital swelling ENT exam: Present: normal exam, mucous membranes moist Neck exam: Present: normal inspection, full ROM. Absent: tenderness, meningismus, lymphadenopathy Respiratory exam: Present: normal lung sounds bilaterally. Absent: respiratory distress, wheezes, rales, rhonchi, stridor Cardiovascular Exam: Present: regular rate, normal rhythm, normal heart sounds. Absent: systolic murmur, diastolic murmur, rubs, gallop, clicks GI/Abdominal exam: Present: soft, normal bowel sounds. Absent: distended, tenderness, guarding, rebound, rigid Back exam: Present: CVA tenderness (L). Absent: CVA tenderness (R) Neurological exam: Present: alert Course Vital Signs 09/02/24 07:48 Temperature 98.4 F Pulse Rate 78 Respiratory 20 Rate Blood Pressure 144/92 O2 Sat by Pulse 99 Oximetry Medical Decision Making - Medical Decision Making Was pt. sent in by a medical professional or institution (, PA, ACCOUNTING/FINANCE TUTOR, urgent care, hospital, or half-way...) When possible be specific @ -No Did you speak to anyone other than the patient for history (EMS, parent, family, police, friend...)? What history was obtained from this source @ -No Did you review nursing and triage notes (agree or disagree)? Why? @ -I reviewed and agree with nursing and triage notes Were old charts reviewed (outside hosp., previous admission, EMS record, old EKG, old radiological studies, urgent care reports/EKG's, half-way records)? Report findings @ -Reviewed recent CT abdomen pelvis showing 5 mm ureteral calculus Differential Diagnosis (chest pain, altered mental status, abdominal pain women, abdominal pain men, vaginal bleeding, weakness, fever, dyspnea, syncope, headac he, dizziness, GI bleed, back pain, seizure, CVA, palpatations, mental health, musculoskeletal)? @ -Differential Abdominal Pain Women: Appendicitis, Cholecystitis, diverticulosis, ischemic bowel, pancreatitis, hepatitis, UTI, gastroenteritis, AAA, incarcerated hernia, bowel obstruction, constipation, inflammatory bowel, hepatitis, peptic ulcer disease, splenic infarction, perforated viscus, vulvitis, ovarian torsion, PID, kidney stone, placenta abruption, this is not meant to be an all-inclusive list EKG interpreted by me (3pts min.). @ -None X-rays interpreted by me (1pt min.). @ -None done CT interpreted by me (1pt min.). @ -None done U/S interpreted by me (1pt. min.). @ -None done What testing was considered but not performed or refused? (CT, X-rays, U/S, labs)? Why? @ -None What meds were considered but not given or refused? Why? @ -None Did you discuss the management of the patient with other professionals (professionals i.e. , PA, ACCOUNTING/FINANCE TUTOR, lab, RT, psych nurse, perinatal social worker, welder gas automatic, teacher, senior credit officer, adult protective caseworker)? Give summary @ -No Was smoking cessation discussed for >3mins.? @ -No Was critical care preformed (if so, how long)? @ -No Were there social determinants of health that impacted care today? How? (Homelessness, low income, unemployed, alcoholism, drug addiction, transportation, low edu. Level, literacy, decrease access to med. care, custodial, rehab)? @ -No Was there de-escalation of care discussed even if they declined (Discuss DNR or withdrawal of care, Hospice)? DNR status @ -No What co-morbidities impacted this encounter? (DM, HTN, Smoking, COPD, CAD, Cancer, CVA, ARF, Chemo, Hep., AIDS, mental health diagnosis, sleep apnea, morbid obesity)? @ -None Was patient admitted / discharged? Hospital course, mention meds given and route, prescriptions, significant lab abnormalities, going to OR and other pertinent info. @ -Discharged patient feels greatly improved at this time she has appointment with urology. Patient discharged with analgesics return transfer discussed. Undiagnosed new problem with uncertain prognosis? @ -No Drug Therapy requiring intensive monitoring for toxicity (Heparin, Nitro, Insulin, Cardizem)? @ -No Were any procedures done? @ -No Diagnosis/symptom? @ -Ureteral calculus Acute, or Chronic, or Acute on Chronic? @ -Acute Uncomplicated (without systemic symptoms) or Complicated (systemic symptoms)? @ -Uncomplicated Side effects of treatment? @ -No Exacerbation, Progression, or Severe Exacerbation? @ -No Poses a threat to life or bodily function? How? (Chest pain, [place], [place], pneumonia, PE, COPD, DKA, ARF, appy, cholecystitis, CVA, Diverticulitis, Homicidal, Suicidal, threat to staff... and all critical care pts) @ -No - Lab Data Result diagrams: 09/02/24 08:19 09/02/24 08:19 Lab Results 09/02/24 09/02/24 09/02/24 Range/Units 08:19 08:19 08:19 WBC 7.4 (3.8-10.6) k/uL RBC 4.32 (3.80-5.40) m/uL Hgb 13.0 (11.4-16.0) gm/dL Hct 39.0 (34.0-46.0) % MCV 90.2 (80.0-100.0) fL MCH 30.1 (25.0-35.0) pg MCHC 33.3 (31.0-37.0) g/dL RDW 11.7 (11.5-15.5) % Plt Count 209 (150-450) k/uL MPV 8.0 Neutrophils % 66 % Lymphocytes % 25 % Monocytes % 5 % Eosinophils % 2 % Basophils % 1 % Neutrophils # 4.9 (1.3-7.7) k/uL Lymphocytes # 1.9 (1.0-4.8) k/uL Monocytes # 0.4 (0-1.0) k/uL Eosinophils # 0.2 (0-0.7) k/uL Basophils # 0.0 (0-0.2) k/uL Sodium 137 (137-145) mmol/L Potassium 3.7 (3.5-5.1) mmol/L Chloride 107 (98-107) mmol/L Carbon Dioxide 28 (22-30) mmol/L Anion Gap 2 mmol/L BUN 9 (7-17) mg/dL Creatinine 0.87 (0.52-1.04) mg/dL Est GFR (CKD-EPI)AfAm >90 (>60 ml/min/1.73 sqM) Est GFR (CKD-EPI)NonAf 81 (>60 ml/min/1.73 sqM) Glucose 80 (74-99) mg/dL Calcium 9.0 (8.4-10.2) mg/dL Total Bilirubin 0.2 (0.2-1.3) mg/dL AST 24 (14-36) U/L ALT 17 (4-34) U/L Alkaline Phosphatase 52 (38-126) U/L Total Protein 6.1 L (6.3-8.2) g/dL Albumin 3.7 (3.5-5.0) g/dL Lipase 125 (23-300) U/L Urine Color Colorless Urine Appearance Cloudy H (Clear) Urine pH 6.0 (5.0-8.0) Ur Specific [place] 1.015 (1.001-1.035) Urine Protein Negative (Negative) Urine Glucose (UA) Negative (Negative) Urine Ketones Negative (Negative) Urine Blood Trace H (Negative) Urine Nitrite Negative (Negative) Urine Bilirubin Negative (Negative) Urine Urobilinogen <2.0 (<2.0) mg/dL Ur Leukocyte Esterase Trace H (Negative) Urine RBC 6 H (0-5) /hpf Urine WBC 6 H (0-5) /hpf Ur Squamous Epith Cells 10 H (0-4) /hpf Urine Bacteria Moderate H (None) /hpf Urine Mucus Occasional H (None) /hpf Disposition Clinical Impression: Ureteral calculus, left Disposition: HOME SELF-CARE Condition: Stable Instructions (If sedation given, give patient instructions): Kidney Stones (ED) Additional Instructions: Please return to the Emergency Department if symptoms worsen or any other concerns. Prescriptions: Tamsulosin [Flomax] 0.4 mg PO DAILY #7 cap HYDROcodone/APAP 5-325MG [[place] 5] 1 each PO Q6HR PRN #12 tab PRN Reason: Pain Is patient prescribed a controlled substance at d/c from ED?: Yes When asked, does pt state using other controlled substances?: No If prescribed controlled substance>3 days was MAPS reviewed?: Prescribed <3 Days If opioid is for acute pain is fill amount 7 days or less?: Yes If Rx opioid, was Start Talking consent form obtained?: Yes Referrals: Neena De Los Santos NPC [Family Provider] - 1-2 days Keon Carmichael MD [STAFF PHYSICIAN] - 1-2 days Time of Disposition: 09:02
[2024-09-02] MEDS: ONDANSETRON 4 MG/2 ML VIAL IVP STA (08:13)
[2024-09-02] MEDS: KETOROLAC 15 MG/ML 1 ML VIAL IVP STA (08:14)
[2024-09-02] MEDS: HYDROmorphone 0.5 MG/0.5 ML SYRINGE IVP STA (08:15)
[2024-09-02] MEDS: SODIUM CHLORIDE 0.9% 2,000 ML IV STA (08:18)
[2024-09-02 08:27] LABS: Basophils % (A) 1 %; Eosinophils # (A) 0.2 k/uL (0-0.7); Eosinophils % (A) 2 %; Lymphocytes # (A) 1.9 k/uL (1.0-4.8); Lymphocytes % (A) 25 %; MCH 30.1 pg (25.0-35.0); MCHC 33.3 g/dL (31.0-37.0); MCV 90.2 fL (80.0-100.0); Monocytes # (A) 0.4 k/uL (0-1.0); Monocytes % (A) 5 %; Neutrophils # (A) 4.9 k/uL (1.3-7.7); Neutrophils % (A) 66 %; Platelet Count 209 k/uL (150-450); RBC 4.32 m/uL (3.80-5.40); RDW 11.7 % (11.5-15.5); WBC 7.4 k/uL (3.8-10.6)
[2024-09-02 08:33] LABS: Appearance,Urine Cloudy (Clear); Bacteria,Urine Moderate /hpf; Bilirubin,Urine Negative (Negative); Blood,Urine Trace (Negative); Color,Urine Colorless; Glucose,Urine (UA) Negative (Negative); Ketones,Urine Negative (Negative); Leukocyte Esterase,Urine Trace (Negative); Mucus,Urine Occasional /hpf; Nitrite,Urine Negative (Negative); Protein,Urine Negative (Negative); RBC,Urine 6 /hpf (0-5); Specific Gravity,Urine 1.015 (1.001-1.035); Squamous Epithelial Cell,Urine 10 /hpf (0-4); Urobilinogen,Urine <2.0 mg/dL (<2.0); WBC,Urine 6 /hpf (0-5)
[2024-09-02 08:44] LABS: ALT 17 U/L (4-34); AST 24 U/L (14-36); African American GFR (CKD) >90 (>60 ml/min/1.73 sqM); Albumin 3.7 g/dL (3.5-5.0); Alkaline Phosphatase 52 U/L (38-126); Anion Gap 2 mmol/L; Blood Urea Nitrogen 9 mg/dL (7-17); Carbon Dioxide 28 mmol/L (22-30); Chloride 107 mmol/L (98-107); Glucose 80 mg/dL (74-99); Lipase 125 U/L (23-300); Non-African American GFR(CKD) 81 (>60 ml/min/1.73 sqM); Potassium 3.7 mmol/L (3.5-5.1); Sodium 137 mmol/L (137-145); Total Bilirubin 0.2 mg/dL (0.2-1.3); Total Protein 6.1 g/dL (6.3-8.2)
[2024-09-02 09:40] VITALS: BP 140/84
== END 2024-09-02 09:40 | disposition home or self-care (01) ==
LOC: EC 07:46
DX: N20.2 Calculus of kidney with calculus of ureter (principal); Z88.8 Allergy status to other drugs, medicaments and biological substances
CPT/HCPCS: 36415; 80053; 83690; 85025; 81001; 99284; 96374; 96375; 96361; J2405; J1885; J1171

== ENCOUNTER → 2025-01-20 | Day surgery (SDC) | payer BC ==
[~2025-01-20] MED LIST changes: -CYANOCOBALAMIN 1,000 MCG/ML 1 ML VIAL IM NR; +LIDOCAINE 1% (10MG/ML) FOR IV START INTRADERMA PRN; +LIDOCAINE 1% INJ 10MG/ML (20 ML MDV) ONE; +PROPOFOL 10 MG/ML 20 ML VIAL IV ONE
[2025-01-20 11:25] VITALS: TEMP 97.3
[2025-01-20] MEDS: IV FLUID CONTINUATION 1,000 ML IV ONE (11:27)
[2025-01-20] MEDS: LACTATED RINGERS 1,000 ML IV SCH (11:28)
--- NOTE | 2025-01-20 12:14 | P.PCN ---
Date of Procedure: 01/20/25 Procedure(s) Performed: BRIEF HISTORY: Patient is a 44-year-old, pleasant, white female scheduled for an upper endoscopy as a part of evaluation of GERD and gurgling sensation in the throat area for the last 1 year duration.. She was not happy with any milligrams daily with no help. Patient was started on Protonix 40 mg daily and still has not noticed any change in her symptoms. PROCEDURE PERFORMED: Esophagogastroduodenoscopy with biopsy. PREOPERATIVE DIAGNOSIS: GERD and throat gurgling. IV sedation per anesthesia. PROCEDURE: After informed consent was obtained, the patient was brought into the endoscopy unit. IV sedation was administered by Anesthesia under continuous monitoring. Initially the Olympus GIF-140 video endoscope was inserted into the mouth. Esophagus intubated without any difficulty. It was gradually advanced into the stomach and duodenum and carefully examined. The bulb and the second part of the duodenum appeared normal. The scope at this time was withdrawn to the stomach, adequately insufflated with air, and upon careful examination, mucosa of the antrum, had some gastritis and biopsies were done from this area. There was evidence of gastric sleeve surgery noted. Because of the gastric sleeve appeared normal. The scope was then withdrawn into the esophagus. Small hiatal hernia noted. The GE junction was located at 36 cm from the incisors edge appeared slightly irregular but there was no esophagitis or Pulliam's esophagus seen. The rest of the esophagus appeared normal. There were no erosions or ulcerations seen. Biopsies were done from the distal esophagus. Proximal cervical esophagus was carefully examined which appeared normal and the patient tolerated the procedure well. IMPRESSION: 1. Small hiatal hernia. 2. No evidence of esophagitis or Pulliam's esophagus 3. Evidence of gastric sleeve surgery. RECOMMENDATIONS: The findings of this examination were discussed with the patient as well as her family. She was advised to follow-up with the biopsy results. Continue with Protonix 40 mg daily and follow antireflux measures. Follow-up in the office in 2 weeks..
[2025-01-20 12:36] VITALS: BP 126/87; PULSE 66; RESP 16
== END ==
LOC: ORWHC2ENDO 10:51
PROVIDERS: ATTEND Internal Medicine Gastroenterology
DX: K29.50 Unspecified chronic gastritis without bleeding (principal); K21.9 Gastro-esophageal reflux disease without esophagitis; Z98.84 Bariatric surgery status; K44.9 Diaphragmatic hernia without obstruction or gangrene
CPT/HCPCS: 81025; 43239; J2003; J2704; 88305